=== PATIENT | female | born 1950 | race Hispanic/Latino ===

== ENCOUNTER 2022-03-01 16:38 | Inpatient (IN) | payer MEDICARE ==
[2022-03-02] MEDS: MELATONIN 5 MG TAB PO PRN ×2 (01:37→21:07)
[2022-03-02] MEDS: levETIRAcetam 500 MG TAB PO SCH ×3 (01:37→21:07)
[2022-03-02 08:17] LABS: Basophils % (Auto) 0.3 % (0.0-1.8); Eosinophils # (Auto) 0.3 K/mm3 (0.0-0.4); Eosinophils % (Auto) 3.5 % (0.0-4.3); Hematocrit 38.2 % (30.3-42.9); Hemoglobin 12.6 gm/dl (10.1-14.3); Lymphocytes # (Auto) 1.6 K/mm3 (1.2-5.4); Lymphocytes % (Auto) 20.5 % (13.4-35.0); Mean Corpuscular HGB Conc 33 % (30-34); Mean Corpuscular Volume 86 fl (79-97); Monocytes # (Auto) 0.8 K/mm3 (0.0-0.8); Monocytes % (Auto) 10.4 % (0.0-7.3); Platelet Count 269 K/mm3 (140-440); Red Blood Count 4.45 M/mm3 (3.65-5.03); Red Cell Distribution Width 14.2 % (13.2-15.2)
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
[2022-03-02 08:46] LABS: Alanine Aminotransferase 9 units/L (7-56); Albumin 4.4 g/dL (3.9-5); Blood Urea Nitrogen 7 mg/dL (7-17); Calcium 9.7 mg/dL (8.4-10.2); Chol/HDL Ratio 2.61 %; HDL Cholesterol 67 mg/dL (40-59); Hemolysis Index 2; LDL Cholesterol,Direct 87 mg/dL (50-130)
[2022-03-02 08:52] LABS: BUN/Creatinine Ratio 10
[2022-03-02] MEDS ORDERED: FERROUS SULFATE 325 MG PO SCH (10:00)
[2022-03-02] MEDS: FERROUS SULFATE 325 MG TAB PO SCH ×2 (10:00→21:06)
[2022-03-02] MEDS ORDERED: LEVOTHYROXINE 25 MCG PO SCH (10:00)
[2022-03-02] MEDS ORDERED: FOLIC ACID 1 MG PO SCH (10:00)
[2022-03-02] MEDS: atenoloL 50 MG TAB PO SCH ×2 (10:00→21:07)
[2022-03-02] MEDS: CITALOPRAM 20 MG TAB PO SCH (10:00)
[2022-03-02] MEDS ORDERED: CRESTOR 5 MG PO SCH (10:00)
[2022-03-02] MEDS ORDERED: ZIPRASIDONE MESYLATE 20 MG VIAL IM PRN (10:00)
[2022-03-02] MEDS ORDERED: CELEXA 40 MG PO SCH (10:00)
[2022-03-02] MEDS ORDERED: ONDANSETRON 4 MG PO SCH (10:00)
[2022-03-02] MEDS: hydroCHLOROthiazide 25 MG TAB PO SCH (10:00)
[2022-03-02] MEDS ORDERED: LEVOTHYROXINE 50 MCG PO SCH (10:00)
[2022-03-02] MEDS: FOLIC ACID 1 MG TAB PO SCH ×2 (10:00→21:07)
[2022-03-02] MEDS ORDERED: levETIRAcetam 500 MG TAB PO SCH (10:00)
[2022-03-02] MEDS ORDERED: ATENOLOL 50 MG PO SCH (10:00)
[2022-03-02] MEDS ORDERED: PROPRANOLOL 20 MG PO SCH (10:00)
[2022-03-02] MEDS: ONDANSETRON 4 MG ODT TAB PO SCH ×2 (12:00→21:07)
--- NOTE | 2022-03-02 14:30 | Consultation ---
History of Present Illness - Reason for Consult Consult date: 03/02/22 medical management Requesting physician: KE WOOD - History of Present Illness 71-year-old female with past medical history of seizures, hypertension, hyperlpidemia, celiac disease, hypothyroidism, depression and anxiety presenting to our facility for acute psychosis to the [facility] psych service. Internal medicine service consulted for medical management. She denies any acute symptomology of PACHECO, dizziness, n/v/d/c, chest pain, shortness of breath, PMHx: seizures, hypertension, hyperlpidemia, celiac disease, hypothyroidism, ?chronic lyme disease, depression and anxiety PSHx: discectomy in 1980, hysterectomy in . FHx: reviewed noncontributory SHx: Tobacco use-denies ETOH Use-occasionally Recreational Drug Use-denies PCP-Dr. Santiago From [place], [place] Medications and Allergies Allergies Allergy/AdvReac Type Severity Reaction Status Date / Time aspirin Allergy Unknown Unverified 03/01/22 16:48 ceftriaxone Allergy Unknown Unverified 03/01/22 16:45 ginkgo biloba Allergy Unknown Unverified 03/01/22 16:48 oxycodone Allergy Unknown Unverified 03/01/22 16:45 Home Medications Medication Instructions Recorded Confirmed Last Taken Type Atenolol 50 mg PO BID 03/01/22 03/01/22 02/26/22 History Celexa 40 mg PO DAILY 03/01/22 03/01/22 02/26/22 History Crestor 5 mg PO DAILY 03/01/22 03/01/22 02/26/22 History Ferrous Sulfate 325 mg PO BID 03/01/22 03/01/22 02/26/22 History Folic Acid 1 mg PO BID 03/01/22 03/01/22 02/26/22 History Levothyroxine 25 mcg PO DAILY 03/01/22 03/01/22 02/26/22 History Levothyroxine 50 mcg PO DAILY 03/01/22 03/01/22 02/26/22 History Melatonin 5 mg SUBLINGUAL HS 03/01/22 03/01/22 02/26/22 History Ondansetron 4 mg PO BID 03/01/22 03/01/22 02/26/22 History hydroCHLOROthiazide [HCTZ] 25 mg PO DAILY 03/01/22 03/01/2222 History levETIRAcetam [Keppra TAB] 500 mg PO BID 03/01/22 03/01/22 02/26/22 History propranoloL 20 mg PO BID 03/01/22 03/01/22 Unknown History Active Meds: Active Medications Atenolol (Atenolol 50 Mg Tab) 50 mg PO BID [facility] Last Admin: 03/02/22 10:00 Dose: 50 mg Atorvastatin Calcium (Atorvastatin 20 Mg Tab) 20 mg PO QHS [facility] Citalopram Hydrobromide (Citalopram 20 Mg Tab) 40 mg PO QDAY [facility] Last Admin: 03/02/22 10:00 Dose: 40 mg Ferrous Sulfate (Ferrous Sulfate 325 Mg Tab) 325 mg PO BID [facility] Last Admin: 03/02/22 10:00 Dose: 325 mg Folic Acid (Folic Acid 1 Mg Tab) 1 mg PO BID [facility] Last Admin: 03/02/22 10:00 Dose: 1 mg Hydrochlorothiazide (Hydrochlorothiazide 25 Mg Tab) 25 mg PO DAILY [facility] Last Admin: 03/02/22 10:00 Dose: 25 mg Levetiracetam (Levetiracetam 500 Mg Tab) 500 mg PO BID [facility] Last Admin: 03/02/22 10:00 Dose: 500 mg Levothyroxine Sodium (Levothyroxine 25 Mcg Tab) 25 mcg PO DAILY@0600 [facility] Levothyroxine Sodium (Levothyroxine 50 Mcg Tab) 50 mcg PO DAILY@0600 [facility] Melatonin (Melatonin 5 Mg Tab) 5 mg PO QHS PRN PRN Reason: Sleep Last Admin: 03/02/22 01:37 Dose: 5 mg Ondansetron HCl (Ondansetron 4 Mg Odt Tab) 4 mg PO BID [facility] Last Admin: 03/02/22 12:00 Dose: 4 mg Trazodone HCl (Trazodone 50 Mg Tab) 50 mg PO QHS [facility] Ziprasidone (Ziprasidone Mesylate 20 Mg Vial) 20 mg IM Q4H PRN PRN Reason: Agitation Review of Systems All systems: negative (for stated in HPI.) Exam - Physical Exam Narrative exam: Physical Exam: VITAL SIGNS: Reviewed. GENERAL: The patient appears normally developed, Vital signs as documente d.Elderly female appears stated age. HEAD: No signs of head trauma. EYES: Pupils are equal. Extraocular motions intact. EARS: Hearing grossly intact. MOUTH: Oropharynx is normal. NECK: No adenopathy, no JVD. CHEST: Chest with clear breath sounds bilaterally. No wheezes, rales, or rhonchi. CARDIAC: Regular rate and rhythm. S1 and S2, without murmurs, gallops, or rubs. VASCULAR: No Edema. Peripheral pulses normal and equal in all extremities. ABDOMEN: Soft, non tender and non distended. No rebound or guarding, and no masses palpated. Bowel Sounds normal. MUSCULOSKELETAL: Extremities without clubbing, cyanosis or edema. NEUROLOGIC EXAM: Alert and oriented x 4. no focal sensory or strength deficits. PSYCHIATRIC: Mood normal. SKIN: detail exam as documented in skin assessment - Constitutional Vitals: Temp Pulse Resp BP Pulse Ox 98.7 F 112 H 17 137/87 96 03/01/22 23:30 03/01/22 23:30 03/01/22 23:30 03/01/22 23:30 03/01/22 23:30 Results - Labs CBC & Chem 7: 03/02/22 07:39 03/02/22 07:39 Labs: Abnormal lab results 03/02/22 03/02/22 03/02/22 Range/Units 07:39 07:39 07:39 [place] % (Auto) 10.4 H (0.0-7.3) % Glucose 105 H (65-100) mg/dL Hemoglobin A1c 6.2 H (4-6) % HDL Cholesterol 67 H (40-59) mg/dL Assessment and Plan #Acute psychosis #Anxiety #Depression #History of seizures #History of Celiac Disease #Essential Hypertension #Hyperlipidemia #Hypothyroidism #Preventative health care - preventative health counseling regarding management of life stressors, medication compliance and overall effect of chronic medical conditions on overall health. Encourage patient to follow up closely with with OP providers +30 minutes. Plan -Psychiatric medication management per inpatient psych service -Monitor blood pressure daily -Accu-Cheks ACHS -labs orders noted, will follow for results -Resume home: atenolol, atorvastatin, HCTZ, keppra, levothyroxine -Monitor QTC while on antipsychotic meds IM service will follow along while patient remains in hospital.
[2022-03-02] MEDS: traZODone 50 MG TAB PO SCH (21:07)
[2022-03-02] MEDS ORDERED: MELATONIN 5 MG SUBLINGUAL SCH (22:00)
[2022-03-03] MEDS: LEVOTHYROXINE 50 MCG TAB PO SCH (05:14)
[2022-03-03] MEDS: LEVOTHYROXINE 25 MCG TAB PO SCH (05:14)
--- NOTE | 2022-03-03 09:11 | Progress Note ---
Assessment and Plan Assessment and plan: #Acute psychosis #Anxiety #Depression #History of seizures #History of Celiac Disease #Essential Hypertension #Hyperlipidemia #Hypothyroidism #Advance care planning Disease education conducted, care plan discussed, diagnoses discussed, prognosis discussed, patient is full code, patient acknowledges understanding and agree with care plan, +30 minutes. #Preventative health care - preventative health counseling regarding management of life stressors, medication compliance and overall effect of chronic medical conditions on overall health. Encourage patient to follow up closely with with OP providers +15 minutes. Plan -Psychiatric medication management per inpatient psych service -Monitor blood pressure daily -Accu-Cheks ACHS -labs orders noted, results noted. - A1c: 6.1, no indication to treat at this time given age. Advise carbohydrate controlled diet. -Resume home: atenolol, atorvastatin, HCTZ, keppra, levothyroxine -Monitor QTC while on antipsychotic meds IM service will follow along while patient remains in hospital. History Interval history: Flight of ideas noted on encounter. Patient continues to be concerned about recieving all meds and re-iterates frequently all of chronic conditions particularly her history of seizures and chronic lyme disease. Otherwise no acute complaints. Hospitalist Physical - Physical exam Narrative exam: Physical Exam: VITAL SIGNS: Reviewed. GENERAL: The patient appears normally developed, Vital signs as documented.Elderly female appears stated age. HEAD: No signs of head trauma. EYES: Pupils are equal. Extraocular motions intact. EARS: Hearing grossly intact. MOUTH: Oropharynx is normal. NECK: No adenopathy, no JVD. CHEST: Chest with clear breath sounds bilaterally. No wheezes, rales, or rhonchi. CARDIAC: Regular rate and rhythm. S1 and S2, without murmurs, gallops, or rubs. VASCULAR: No Edema. Peripheral pulses normal and equal in all extremities. ABDOMEN: Soft, non tender and non distended. No rebound or guarding, and no masses palpated. Bowel Sounds normal. MUSCULOSKELETAL: Extremities without clubbing, cyanosis or edema. NEUROLOGIC EXAM: Alert and oriented x 4. no focal sensory or strength deficits. PSYCHIATRIC: Mood normal. SKIN: detail exam as documented in skin assessment - Constitutional Vitals: Temp Pulse Resp BP Pulse Ox 98.6 F 112 H 17 137/87 96 03/02/22 20:23 03/02/22 21:07 03/02/22 20:23 03/02/22 21:07 03/02/22 20:23 Results - Labs CBC & Chem 7: 03/02/22 07:39 03/02/22 07:39 Labs: Laboratory Last Values WBC 7.9 K/mm3 (4.5-11.0) 03/02/22 07:39 RBC 4.45 M/mm3 (3.65-5.03) 03/02/22 07:39 Hgb 12.6 gm/dl (10.1-14.3) 03/02/22 07:39 Hct 38.2 % (30.3-42.9) 03/02/22 07:39 MCV 86 fl (79-97) 03/02/22 07:39 MCH 28 pg (28-32) 03/02/22 07:39 MCHC 33 % (30-34) 03/02/22 07:39 RDW 14.2 % (13.2-15.2) 03/02/22 07:39 Plt Count 269 K/mm3 (140-440) 03/02/22 07:39 Lymph % (Auto) 20.5 % (13.4-35.0) 03/02/22 07:39 [place] % (Auto) 10.4 % (0.0-7.3) H 03/02/22 07:39 Eos % (Auto) 3.5 % (0.0-4.3) 03/02/22 07:39 Baso % (Auto) 0.3 % (0.0-1.8) 03/02/22 07:39 Lymph # (Auto) 1.6 K/mm3 (1.2-5.4) 03/02/22 07:39 [place] # (Auto) 0.8 K/mm3 (0.0-0.8) 03/02/22 07:39 Eos # (Auto) 0.3 K/mm3 (0.0-0.4) 03/02/22 07:39 Baso # (Auto) 0.0 K/mm3 (0.0-0.1) 03/02/22 07:39 Seg Neutrophils % 65.3 % (40.0-70.0) 03/02/22 07:39 Seg Neutrophils # 5.1 K/mm3 (1.8-7.7) 03/02/22 07:39 Sodium 144 mmol/L (137-145) 03/02/22 07:39 Potassium 3.9 mmol/L (3.6-5.0) 03/02/22 07:39 Chloride 104.1 mmol/L (98-107) 03/02/22 07:39 Carbon Dioxide 26 mmol/L (22-30) 03/02/22 07:39 Anion Gap 18 mmol/L 03/02/22 07:39 BUN 7 mg/dL (7-17) 03/02/22 07:39 Creatinine 0.7 mg/dL (0.6-1.2) 03/02/22 07:39 Estimated GFR > 60 ml/min 03/02/22 07:39 BUN/Creatinine Ratio 10 % 03/02/22 07:39 Glucose 105 mg/dL (65-100) H 03/02/22 07:39 Hemoglobin A1c 6.2 % (4-6) H 03/02/22 07:39 Calcium 9.7 mg/dL (8.4-10.2) 03/02/22 07:39 Total Bilirubin 0.40 mg/dL (0.1-1.2) 03/02/22 07:39 AST 15 units/L (5-40) 03/02/22 07:39 ALT 9 units/L (7-56) 03/02/22 07:39 Alkaline Phosphatase 76 units/L (35-129) 03/02/22 07:39 Total Protein 6.8 g/dL (6.3-8.2) 03/02/22 07:39 Albumin 4.4 g/dL (3.9-5) 03/02/22 07:39 Albumin/Globulin Ratio 1.8 % 03/02/22 07:39 Triglycerides 104 mg/dL (2-149) 03/02/22 07:39 Cholesterol 175 mg/dL (50-199) 03/02/22 07:39 LDL Cholesterol Direct 87 mg/dL (50-130) 03/02/22 07:39 HDL Cholesterol 67 mg/dL (40-59) H 03/02/22 07:39 Cholesterol/HDL Ratio 2.61 % 03/02/22 07:39 TSH 2.380 mlU/mL (0.270-4.200) 03/02/22 07:39 Mendoza/IV: Voiding Method Toilet Active Medications - Current Medications Current Medications: Generic Name Dose Route Start Last Admin Trade Name Nikunjq PRN Reason Stop Dose Admin Atenolol 50 mg 03/02/22 10:00 03/02/22 21:07 Atenolol 50 Mg Tab PO 50 mg BID AYAD Administration Atorvastatin Calcium 20 mg 03/02/22 22:00 03/02/22 21:06 Atorvastatin 20 Mg Tab PO 20 mg QHS AYAD Administration Citalopram Hydrobromide 40 mg 03/02/22 10:00 03/02/22 10:00 Citalopram 20 Mg Tab PO 40 mg QDAY AYAD Administration Ferrous Sulfate 325 mg 03/02/22 10:00 03/02/22 21:06 Ferrous Sulfate 325 Mg Tab PO 325 mg BID AYAD Administration Folic Acid 1 mg 03/02/22 10:00 03/02/22 21:07 Folic Acid 1 Mg Tab PO 1 mg BID AYAD Administration Hydrochlorothiazide 25 mg 03/02/22 10:00 03/02/22 10:00 Hydrochlorothiazide 25 Mg Tab PO 25 mg DAILY AYAD Administration Levetiracetam 500 mg 03/02/22 02:00 03/02/22 21:07 Levetiracetam 500 Mg Tab PO 500 mg BID AYAD Administration Levothyroxine Sodium 25 mcg 03/03/22 06:00 03/03/22 05:14 Levothyroxine 25 Mcg Tab PO 25 mcg DAILY@0600 AYAD Administration Levothyroxine Sodium 50 mcg 03/03/22 06:00 03/03/22 05:14 Levothyroxine 50 Mcg Tab PO 50 mcg DAILY@0600 AYAD Administration Melatonin 5 mg 03/02/22 01:25 03/02/22 21:07 Melatonin 5 Mg Tab PO 5 mg QHS PRN Administration Sleep Ondansetron HCl 4 mg 03/02/22 10:00 03/02/22 21:07 Ondansetron 4 Mg Odt Tab PO 4 mg BID AYAD Administration Trazodone HCl 50 mg 03/02/22 22:00 03/02/22 21:07 Trazodone 50 Mg Tab PO 50 mg QHS AYAD Administration Ziprasidone 20 mg 03/02/22 10:00 Ziprasidone Mesylate 20 Mg Vial IM Q4H PRN Agitation
[2022-03-03] MEDS: FERROUS SULFATE 325 MG TAB PO SCH ×2 (10:09→21:59)
[2022-03-03] MEDS: FOLIC ACID 1 MG TAB PO SCH ×2 (10:09→22:01)
[2022-03-03] MEDS: levETIRAcetam 500 MG TAB PO SCH ×2 (10:09→22:00)
[2022-03-03] MEDS: CITALOPRAM 20 MG TAB PO SCH (10:10)
[2022-03-03] MEDS: ONDANSETRON 4 MG ODT TAB PO SCH ×2 (10:18→22:04)
[2022-03-03] MEDS: atenoloL 50 MG TAB PO SCH ×2 (10:19→22:04)
[2022-03-03] MEDS: hydroCHLOROthiazide 25 MG TAB PO SCH (10:19)
[2022-03-03] MEDS: ACETAMINOPHEN 325 MG TAB PO PRN ×2 (10:54→22:54)
--- NOTE | 2022-03-03 13:30 | Progress Note ---
Subjective Date of service: 03/03/22 Subjective Comment: The patient was seen this morning. she continues to be somatically focuses, circumstantial and flight of ideas. She states her mood is good. she denies any current suicidal/homicidal ideation and denies hallucinations. REVIEW OF SYSTEMS Constitutional: Negative for weight loss ENT: Negative for stridor Respiratory: Negative for cough or hemoptysis All other systems reviewed and are negative MENTAL STATUS EXAMINATION General Appearance and Behavior: Age appropriate, good hygiene, wearing appropriate clothes, fair eye contact, calm, cooperative and polite Cooperation: Cooperative Psychomotor Behavior: Psychomotor normal Mood: Depressed Affect and affective range: congruent with stated mood Thought Process: flight of ideas/ circumstantial Thought Content: Somatic Speech: normal tone and pace Suicidal Ideation: Denies Homicidal Ideation: Denies Hallucinations: Denies Delusions: None elicited Impulse Control: Limited Insight and Judgment: Limited insight and judgment Memory: Limited Attention: attentive Orientation: Alert, oriented Assessment and Plan Major depressive disorder with psychotic features Treatment Plan Patient admitted for inpatient psychiatric evaluation, medication adjustment and close monitoring The patient's behavior, mood, sleep and appetite will be closely monitored. Patient enrolled in individual and group therapeutic sessions and encouraged to attend. Patient provided with a safe and structured environment. Patient's physical health needs will be addressed by the Hospitalist. Hospitalist Consulted Labs including CBC, CMP, Lipid profile and Hemoglobin A1C levels ordered for baseline reference Social Assessment will be completed and the [employer] will work with patient and family to ensure a suitable and safe disposition Medication adjustment will be made as clinically indicated Continue home meds Usual Wellness [place]/Preservation: - Start Trazodone 50 mg po QHS & 50 mg po QHS PRN between 10 PM & 2 AM for insomnia - Start Melatonin 5 mg po QHS to promote circadian rhythm The patient agreed on the treatment plan, understood the risk, benefit, alternative treatment, potential consequence of no treatment, and gave informed consent. Estimated days: 6 Post hospital care: primary care provider, psychiatric provider Case staffed with Dr. Walsh Legal Status: Voluntary Reaction to Hospitalization: Accepting Medications and Allergies Allergies Allergy/AdvReac Type Severity Reaction Status Date / Time aspirin Allergy Unknown Unverified 03/01/22 16:48 ceftriaxone Allergy Unknown Unverified 03/01/22 16:45 ginkgo biloba Allergy Unknown Unverified 03/01/22 16:48 oxycodone Allergy Unknown Unverified 03/01/22 16:45 Home Medications Medication Instructions Recorded Confirmed Last Taken Type Atenolol 50 mg PO BID 03/01/22 03/01/22 02/26/22 History Celexa 40 mg PO DAILY 03/01/22 03/01/22 02/26/22 History Crestor 5 mg PO DAILY 03/01/22 03/01/22 02/26/22 History Ferrous Sulfate 325 mg PO BID 03/01/22 03/01/22 02/26/22 History Folic Acid 1 mg PO BID 03/01/22 03/01/22 02/26/22 History Levothyroxine 25 mcg PO DAILY 03/01/22 03/01/22 02/26/22 History Levothyroxine 50 mcg PO DAILY 03/01/22 03/01/22 02/26/22 History Melatonin 5 mg SUBLINGUAL HS 03/01/22 03/01/22 02/26/22 History Ondansetron 4 mg PO BID 03/01/22 03/01/22 02/26/22 History hydroCHLOROthiazide [HCTZ] 25 mg PO DAILY 03/01/22 03/01/22 02/26/22 History levETIRAcetam [Keppra TAB] 500 mg PO BID 03/01/22 03/01/22 02/26/22 History propranoloL 20 mg PO BID 03/01/22 03/01/22 Unknown History Active Meds: Active Medications Acetaminophen (Acetaminophen 325 Mg Tab) 650 mg PO Q6H PRN PRN Reason: Pain, Mild (1-3) Last Admin: 03/03/22 10:54 Dose: 650 mg Atenolol (Atenolol 50 Mg Tab) 50 mg PO BID [facility] Last Admin: 03/03/22 10:19 Dose: Not Given Atorvastatin Calcium (Atorvastatin 20 Mg Tab) 20 mg PO QHS [facility] Last Admin: 03/02/22 21:06 Dose: 20 mg Citalopram Hydrobromide (Citalopram 20 Mg Tab) 40 mg PO QDAY [facility] Last Admin: 03/03/22 10:10 Dose: 40 mg Ferrous Sulfate (Ferrous Sulfate 325 Mg Tab) 325 mg PO BID [facility] Last Admin: 03/03/22 10:09 Dose: 325 mg Folic Acid (Folic Acid 1 Mg Tab) 1 mg PO BID [facility] Last Admin: 03/03/22 10:09 Dose: 1 mg Hydrochlorothiazide (Hydrochlorothiazide 25 Mg Tab) 25 mg PO DAILY [facility] Last Admin: 03/03/22 10:19 Dose: Not Given Levetiracetam (Levetiracetam 500 Mg Tab) 500 mg PO BID [facility] Last Admin: 03/03/22 10:09 Dose: 500 mg Levothyroxine Sodium (Levothyroxine 25 Mcg Tab) 25 mcg PO DAILY@0600 [facility] Last Admin: 03/03/22 05:14 Dose: 25 mcg Levothyroxine Sodium (Levothyroxine 50 Mcg Tab) 50 mcg PO DAILY@0600 [facility] Last Admin: 03/03/22 05:14 Dose: 50 mcg Melatonin (Melatonin 5 Mg Tab) 5 mg PO QHS PRN PRN Reason: Sleep Last Admin: 03/02/22 21:07 Dose: 5 mg Ondansetron HCl (Ondansetron 4 Mg Odt Tab) 4 mg PO BID [facility] Last Admin: 03/03/22 10:18 Dose: Not Given Trazodone HCl (Trazodone 50 Mg Tab) 50 mg PO QHS [facility] Last Admin: 03/02/22 21:07 Dose: 50 mg Ziprasidone (Ziprasidone Mesylate 20 Mg Vial) 20 mg IM Q4H PRN PRN Reason: Agitation Results - Results Labs/Vitals: Laboratory Last Values WBC 7.9 K/mm3 (4.5-11.0) 03/02/22 07:39 RBC 4.45 M/mm3 (3.65-5.03) 03/02/22 07:39 Hgb 12.6 gm/dl (10.1-14.3) 03/02/22 07:39 Hct 38.2 % (30.3-42.9) 03/02/22 07:39 MCV 86 fl (79-97) 03/02/22 07:39 MCH 28 pg (28-32) 03/02/22 07:39 MCHC 33 % (30-34) 03/02/22 07:39 RDW 14.2 % (13.2-15.2) 03/02/22 07:39 Plt Count 269 K/mm3 (140-440) 03/02/22 07:39 Lymph % (Auto) 20.5 % (13.4-35.0) 03/02/22 07:39 [place] % (Auto) 10.4 % (0.0-7.3) H 03/02/22 07:39 Eos % (Auto) 3.5 % (0.0-4.3) 03/02/22 07:39 Baso % (Auto) 0.3 % (0.0-1.8) 03/02/22 07:39 Lymph # (Auto) 1.6 K/mm3 (1.2-5.4) 03/02/22 07:39 [place] # (Auto) 0.8 K/mm3 (0.0-0.8) 03/02/22 07:39 Eos # (Auto) 0.3 K/mm3 (0.0-0.4) 03/02/22 07:39 Baso # (Auto) 0.0 K/mm3 (0.0-0.1) 03/02/22 07:39 Seg Neutrophils % 65.3 % (40.0-70.0) 03/02/22 07:39 Seg Neutrophils # 5.1 K/mm3 (1.8-7.7) 03/02/22 07:39 Sodium 144 mmol/L (137-145) 03/02/22 07:39 Potassium 3.9 mmol/L (3.6-5.0) 03/02/22 07:39 Chloride 104.1 mmol/L (98-107) 03/02/22 07:39 Carbon Dioxide 26 mmol/L (22-30) 03/02/22 07:39 Anion Gap 18 mmol/L 03/02/22 07:39 BUN 7 mg/dL (7-17) 03/02/22 07:39 Creatinine 0.7 mg/dL (0.6-1.2) 03/02/22 07:39 Estimated GFR > 60 ml/min 03/02/22 07:39 BUN/Creatinine Ratio 10 % 03/02/22 07:39 Glucose 105 mg/dL (65-100) H 03/02/22 07:39 Hemoglobin A1c 6.2 % (4-6) H 03/02/22 07:39 Calcium 9.7 mg/dL (8.4-10.2) 03/02/22 07:39 Total Bilirubin 0.40 mg/dL (0.1-1.2) 03/02/22 07:39 AST 15 units/L (5-40) 03/02/22 07:39 ALT 9 units/L (7-56) 03/02/22 07:39 Alkaline Phosphatase 76 units/L (35-129) 03/02/22 07:39 Total Protein 6.8 g/dL (6.3-8.2) 03/02/22 07:39 Albumin 4.4 g/dL (3.9-5) 03/02/22 07:39 Albumin/Globulin Ratio 1.8 % 03/02/22 07:39 Triglycerides 104 mg/dL (2-149) 03/02/22 07:39 Cholesterol 175 mg/dL (50-199) 03/02/22 07:39 LDL Cholesterol Direct 87 mg/dL (50-130) 03/02/22 07:39 HDL Cholesterol 67 mg/dL (40-59) H 03/02/22 07:39 Cholesterol/HDL Ratio 2.61 % 03/02/22 07:39 TSH 2.380 mlU/mL (0.270-4.200) 03/02/22 07:39 Last Vital Signs Temp 98.0 F 03/03/22 08:08 Pulse 56 L 03/03/22 08:08 Resp 16 03/03/22 08:08 BP 128/56 03/03/22 08:08 Pulse Ox 98 03/03/22 08:08
[2022-03-03] MEDS: traZODone 50 MG TAB PO SCH (21:59)
[2022-03-04] MEDS: LEVOTHYROXINE 25 MCG TAB PO SCH (05:41)
[2022-03-04] MEDS: LEVOTHYROXINE 50 MCG TAB PO SCH (05:42)
[2022-03-04] MEDS: FOLIC ACID 1 MG TAB PO SCH ×2 (09:30→21:45)
[2022-03-04] MEDS: FERROUS SULFATE 325 MG TAB PO SCH ×2 (09:30→21:44)
[2022-03-04] MEDS: CITALOPRAM 20 MG TAB PO SCH (09:31)
[2022-03-04] MEDS: hydroCHLOROthiazide 25 MG TAB PO SCH (09:31)
[2022-03-04] MEDS: levETIRAcetam 500 MG TAB PO SCH ×2 (09:31→21:45)
[2022-03-04] MEDS: ACETAMINOPHEN 325 MG TAB PO PRN ×2 (09:31→21:59)
[2022-03-04] MEDS: ONDANSETRON 4 MG ODT TAB PO SCH ×2 (09:31→21:46)
--- NOTE | 2022-03-04 09:44 | Progress Note ---
Subjective Date of service: 03/04/22 Subjective Comment: 03/04:The patient was seen this morning. she continues to be somatically focuses, and tangential. She states her mood is good. She denies any current suicidal/homicidal ideation and denies hallucinations. Start Abilify 5mg po Daily. 03/03:The patient was seen this morning. she continues to be somatically focuses, circumstantial and flight of ideas. She states her mood is good. she denies any current suicidal/homicidal ideation and denies hallucinations. REVIEW OF SYSTEMS Constitutional: Negative for weight loss ENT: Negative for stridor Respiratory: Negative for cough or hemoptysis All other systems reviewed and are negative MENTAL STATUS EXAMINATION General Appearance and Behavior: Age appropriate, good hygiene, wearing appropriate clothes, fair eye contact, calm, cooperative and polite Cooperation: Cooperative Psychomotor Behavior: Psychomotor normal Mood: Depressed Affect and affective range: congruent with stated mood Thought Process: flight of ideas/ Tangential Thought Content: Somatic Speech: normal tone and pace Suicidal Ideation: Denies Homicidal Ideation: Denies Hallucinations: Denies Delusions: None elicited Impulse Control: Limited Insight and Judgment: Limited insight and judgment Memory: Limited Attention: attentive Orientation: Alert, oriented Assessment and Plan Major depressive disorder with psychotic features Treatment Plan Patient admitted for inpatient psychiatric evaluation, medication adjustment and close monitoring The patient's behavior, mood, sleep and appetite will be closely monitored. Patient enrolled in individual and group therapeutic sessions and encouraged to attend. Patient provided with a safe and structured environment. Patient's physical health needs will be addressed by the Hospitalist. Hospitalist Consulted Labs including CBC, CMP, Lipid profile and Hemoglobin A1C levels ordered for baseline reference Social Assessment will be completed and the Supervisor [employer] will work with patient and family to ensure a suitable and safe disposition Medication adjustment will be made as clinically indicated Continue home meds Usual Wellness S[place]/Preservation: - Start Trazodone 50 mg po QHS & 50 mg po QHS PRN between 10 PM & 2 AM for insomnia - Start Melatonin 5 mg po QHS to promote circadian rhythm The patient agreed on the treatment plan, understood the risk, benefit, alternative treatment, potential consequence of no treatment, and gave informed consent. Estimated days: 6 Post hospital care: primary care provider, psychiatric provider Case staffed with Dr. Walsh Legal Status: Voluntary Reaction to Hospitalization: Accepting Medications and Allergies Medications and Allergies Allergies Allergy/AdvReac Type Severity Reaction Status Date / Time aspirin Allergy Unknown Unverified 03/01/22 16:48 ceftriaxone Allergy Unknown Unverified 03/01/22 16:45 ginkgo biloba Allergy Unknown Unverified 03/01/22 16:48 oxycodone Allergy Unknown Unverified 03/01/22 16:45 Home Medications Medication Instructions Recorded Confirmed Last Taken Type Atenolol 50 mg PO BID 03/01/22 03/01/22 02/26/22 History Celexa 40 mg PO DAILY 03/01/22 03/01/22 02/26/22 History Crestor 5 mg PO DAILY 03/01/22 03/01/22 02/26/22 History Ferrous Sulfate 325 mg PO BID 03/01/22 03/01/22 02/26/22 History Folic Acid 1 mg PO BID 03/01/22 03/01/22 02/26/22 History Levothyroxine 25 mcg PO DAILY 03/01/22 03/01/22 02/26/22 History Levothyroxine 50 mcg PO DAILY 03/01/22 03/01/22 02/26/22 History Melatonin 5 mg SUBLINGUAL HS 03/01/22 03/01/22 02/26/22 History Ondansetron 4 mg PO BID 03/01/22 03/01/22 02/26/22 History hydroCHLOROthiazide [HCTZ] 25 mg PO DAILY 03/01/22 03/01/22 02/26/22 History levETIRAcetam [Keppra TAB] 500 mg PO BID 03/01/22 03/01/22 02/26/22 History propranoloL 20 mg PO BID 03/01/22 03/01/22 Unknown History Active Meds: Active Medications Acetaminophen (Acetaminophen 325 Mg Tab) 650 mg PO Q6H PRN PRN Reason: Pain, Mild (1-3) Last Admin: 03/04/22 09:31 Dose: 650 mg Atenolol (Atenolol 50 Mg Tab) 50 mg PO BID [facility] Last Admin: 03/03/22 22:04 Dose: Not Given Atorvastatin Calcium (Atorvastatin 20 Mg Tab) 20 mg PO QHS [facility] Last Admin: 03/03/22 22:00 Dose: 20 mg Citalopram Hydrobromide (Citalopram 20 Mg Tab) 40 mg PO QDAY [facility] Last Admin: 03/04/22 09:31 Dose: 40 mg Ferrous Sulfate (Ferrous Sulfate 325 Mg Tab) 325 mg PO BID [facility] Last Admin: 03/04/22 09:30 Dose: 325 mg Folic Acid (Folic Acid 1 Mg Tab) 1 mg PO BID [facility] Last Admin: 03/04/22 09:30 Dose: 1 mg Hydrochlorothiazide (Hydrochlorothiazide 25 Mg Tab) 25 mg PO DAILY [facility] Last Admin: 03/04/22 09:31 Dose: Not Given Levetiracetam (Levetiracetam 500 Mg Tab) 500 mg PO BID [facility] Last Admin: 03/04/22 09:31 Dose: 500 mg Levothyroxine Sodium (Levothyroxine 25 Mcg Tab) 25 mcg PO DAILY@0600 [facility] Last Admin: 03/04/22 05:41 Dose: 25 mcg Levothyroxine Sodium (Levothyroxine 50 Mcg Tab) 50 mcg PO DAILY@0600 [facility] Last Admin: 03/04/22 05:42 Dose: 50 mcg Melatonin (Melatonin 5 Mg Tab) 5 mg PO QHS PRN PRN Reason: Sleep Last Admin: 03/02/22 21:07 Dose: 5 mg Ondansetron HCl (Ondansetron 4 Mg Odt Tab) 4 mg PO BID [facility] Last Admin: 03/04/22 09:31 Dose: Not Given Trazodone HCl (Trazodone 50 Mg Tab) 50 mg PO QHS [facility] Last Admin: 03/03/22 21:59 Dose: 50 mg Ziprasidone (Ziprasidone Mesylate 20 Mg Vial) 20 mg IM Q4H PRN PRN Reason: Agitation Results - Results Labs/Vitals: Laboratory Last Values WBC 7.9 K/mm3 (4.5-11.0) 03/02/22 07:39 RBC 4.45 M/mm3 (3.65-5.03) 03/02/22 07:39 Hgb 12.6 gm/dl (10.1-14.3) 03/02/22 07:39 Hct 38.2 % (30.3-42.9) 03/02/22 07:39 MCV 86 fl (79-97) 03/02/22 07:39 MCH 28 pg (28-32) 03/02/22 07:39 MCHC 33 % (30-34) 03/02/22 07:39 RDW 14.2 % (13.2-15.2) 03/02/22 07:39 Plt Count 269 K/mm3 (140-440) 03/02/22 07:39 Lymph % (Auto) 20.5 % (13.4-35.0) 03/02/22 07:39 [place] % (Auto) 10.4 % (0.0-7.3) H 03/02/22 07:39 Eos % (Auto) 3.5 % (0.0-4.3) 03/02/22 07:39 Baso % (Auto) 0.3 % (0.0-1.8) 03/02/22 07:39 Lymph # (Auto) 1.6 K/mm3 (1.2-5.4) 03/02/22 07:39 [place] # (Auto) 0.8 K/mm3 (0.0-0.8) 03/02/22 07:39 Eos # (Auto) 0.3 K/mm3 (0.0-0.4) 03/02/22 07:39 Baso # (Auto) 0.0 K/mm3 (0.0-0.1) 03/02/22 07:39 Seg Neutrophils % 65.3 % (40.0-70.0) 03/02/22 07:39 Seg Neutrophils # 5.1 K/mm3 (1.8-7.7) 03/02/22 07:39 Sodium 144 mmol/L (137-145) 03/02/22 07:39 Potassium 3.9 mmol/L (3.6-5.0) 03/02/22 07:39 Chloride 104.1 mmol/L (98-107) 03/02/22 07:39 Carbon Dioxide 26 mmol/L (22-30) 03/02/22 07:39 Anion Gap 18 mmol/L 03/02/22 07:39 BUN 7 mg/dL (7-17) 03/02/22 07:39 Creatinine 0.7 mg/dL (0.6-1.2) 03/02/22 07:39 Estimated GFR > 60 ml/min 03/02/22 07:39 BUN/Creatinine Ratio 10 % 03/02/22 07:39 Glucose 105 mg/dL (65-100) H 03/02/22 07:39 Hemoglobin A1c 6.2 % (4-6) H 03/02/22 07:39 Calcium 9.7 mg/dL (8.4-10.2) 03/02/22 07:39 Total Bilirubin 0.40 mg/dL (0.1-1.2) 03/02/22 07:39 AST 15 units/L (5-40) 03/02/22 07:39 ALT 9 units/L (7-56) 03/02/22 07:39 Alkaline Phosphatase 76 units/L (35-129) 03/02/22 07:39 Total Protein 6.8 g/dL (6.3-8.2) 03/02/22 07:39 Albumin 4.4 g/dL (3.9-5) 03/02/22 07:39 Albumin/Globulin Ratio 1.8 % 03/02/22 07:39 Triglycerides 104 mg/dL (2-149) 03/02/22 07:39 Cholesterol 175 mg/dL (50-199) 03/02/22 07:39 LDL Cholesterol Direct 87 mg/dL (50-130) 03/02/22 07:39 HDL Cholesterol 67 mg/dL (40-59) H 03/02/22 07:39 Cholesterol/HDL Ratio 2.61 % 03/02/22 07:39 TSH 2.380 mlU/mL (0.270-4.200) 03/02/22 07:39 Last Vital Signs Temp 98.7 F 03/03/22 19:52 Pulse 58 L 03/03/22 22:04 Resp 18 03/03/22 22:54 BP 142/48 03/03/22 22:04 Pulse Ox 98 03/03/22 19:52
[2022-03-04] MEDS: ARIPiprazole 5 MG TAB PO SCH ×2 (10:41→12:07)
[2022-03-04] MEDS: atenoloL 50 MG TAB PO SCH ×3 (10:41→21:54)
--- NOTE | 2022-03-04 17:01 | Progress Note ---
Assessment and Plan Assessment and plan: Flight of ideas noted on encounter. Patient continues to be concerned about recieving all meds and re-iterates frequently all of chronic conditions particularly her history of seizures and chronic lyme disease. Otherwise no acute complaints. #Acute psychosis #Anxiety #Depression #History of seizures #History of Celiac Disease #Essential Hypertension #Hyperlipidemia #Hypothyroidism #Advance care planning Disease education conducted, care plan discussed, diagnoses discussed, prognosis discussed, patient is full code, patient acknowledges understanding and agree with care plan, +30 minutes. #Preventative health care - preventative health counseling regarding management of life stressors, medication compliance and overall effect of chronic medical conditions on overall health. Encourage patient to follow up closely with with OP providers +15 minutes. Plan -Psychiatric medication management per inpatient psych service -Monitor blood pressure daily -Add high-dose Borin to area of irritation caused by IV from an outside facility -Accu-Cheks ACHS -labs orders noted, results noted. - A1c: 6.1, no indication to treat at this time given age. Advise carbohydrate controlled diet. -Resume home: atenolol, atorvastatin, HCTZ, keppra, levothyroxine -Monitor QTC while on antipsychotic meds IM service will follow along while patient remains in hospital. History Interval history: Patient seen and examined reports [place] of issues most importantly poor appetite. States that he takes some medication [id number] which helps him eat he also reports that he had some eye problems in the past and supposed to be on the medication list L but has not gotten it for 3 weeks now. Hospitalist Physical - Physical exam Narrative exam: VITAL SIGNS: Reviewed. GENERAL: The patient appears normally developed, Vital signs as documented. HEAD: No signs of head trauma. EYES: Pupils are equal. Extraocular motions intact. EARS: Hearing grossly intact. MOUTH: Oropharynx is normal. NECK: No adenopathy, no JVD. CHEST: Chest with clear breath sounds bilaterally. No wheezes, rales, or rhonchi. CARDIAC: Regular rate and rhythm. S1 and S2, without murmurs, gallops, or rubs. VASCULAR: No Edema. Peripheral pulses normal and equal in all extremities. ABDOMEN: Soft, non tender and non distended. No rebound or guarding, and no masses palpated. Bowel Sounds normal. MUSCULOSKELETAL: Good range of motion of all major joints. Extremities without clubbing, cyanosis or edema. NEUROLOGIC EXAM: Alert and oriented x 3 No focal sensory or strength deficits. Speech normal. Follows commands. PSYCHIATRIC: Mood normal. SKIN: Spot on the right wrist area with erythema no warmth. Detail exam as documented in skin assessment - Constitutional Vitals: Temp Pulse Resp BP Pulse Ox 98.2 F 59 L 18 123/54 96 03/04/22 09:59 03/04/22 09:59 03/04/22 09:59 03/04/22 09:59 03/04/22 09:59 Results - Labs CBC & Chem 7: 03/02/22 07:39 03/02/22 07:39 Labs: Laboratory Last Values WBC 7.9 K/mm3 (4.5-11.0) 03/02/22 07:39 RBC 4.45 M/mm3 (3.65-5.03) 03/02/22 07:39 Hgb 12.6 gm/dl (10.1-14.3) 03/02/22 07:39 Hct 38.2 % (30.3-42.9) 03/02/22 07:39 MCV 86 fl (79-97) 03/02/22 07:39 MCH 28 pg (28-32) 03/02/22 07:39 MCHC 33 % (30-34) 03/02/22 07:39 RDW 14.2 % (13.2-15.2) 03/02/22 07:39 Plt Count 269 K/mm3 (140-440) 03/02/22 07:39 Lymph % (Auto) 20.5 % (13.4-35.0) 03/02/22 07:39 [place] % (Auto) 10.4 % (0.0-7.3) H 03/02/22 07:39 Eos % (Auto) 3.5 % (0.0-4.3) 03/02/22 07:39 Baso % (Auto) 0.3 % (0.0-1.8) 03/02/22 07:39 Lymph # (Auto) 1.6 K/mm3 (1.2-5.4) 03/02/22 07:39 [place] # (Auto) 0.8 K/mm3 (0.0-0.8) 03/02/22 07:39 Eos # (Auto) 0.3 K/mm3 (0.0-0.4) 03/02/22 07:39 Baso # (Auto) 0.0 K/mm3 (0.0-0.1) 03/02/22 07:39 Seg Neutrophils % 65.3 % (40.0-70.0) 03/02/22 07:39 Seg Neutrophils # 5.1 K/mm3 (1.8-7.7) 03/02/22 07:39 Sodium 144 mmol/L (137-145) 03/02/22 07:39 Potassium 3.9 mmol/L (3.6-5.0) 03/02/22 07:39 Chloride 104.1 mmol/L (98-107) 03/02/22 07:39 Carbon Dioxide 26 mmol/L (22-30) 03/02/22 07:39 Anion Gap 18 mmol/L 03/02/22 07:39 BUN 7 mg/dL (7-17) 03/02/22 07:39 Creatinine 0.7 mg/dL (0.6-1.2) 03/02/22 07:39 Estimated GFR > 60 ml/min 03/02/22 07:39 BUN/Creatinine Ratio 10 % 03/02/22 07:39 Glucose 105 mg/dL (65-100) H 03/02/22 07:39 Hemoglobin A1c 6.2 % (4-6) H 03/02/22 07:39 Calcium 9.7 mg/dL (8.4-10.2) 03/02/22 07:39 Total Bilirubin 0.40 mg/dL (0.1-1.2) 03/02/22 07:39 AST 15 units/L (5-40) 03/02/22 07:39 ALT 9 units/L (7-56) 03/02/22 07:39 Alkaline Phosphatase 76 units/L (35-129) 03/02/22 07:39 Total Protein 6.8 g/dL (6.3-8.2) 03/02/22 07:39 Albumin 4.4 g/dL (3.9-5) 03/02/22 07:39 Albumin/Globulin Ratio 1.8 % 03/02/22 07:39 Triglycerides 104 mg/dL (2-149) 03/02/22 07:39 Cholesterol 175 mg/dL (50-199) 03/02/22 07:39 LDL Cholesterol Direct 87 mg/dL (50-130) 03/02/22 07:39 HDL Cholesterol 67 mg/dL (40-59) H 03/02/22 07:39 Cholesterol/HDL Ratio 2.61 % 03/02/22 07:39 TSH 2.380 mlU/mL (0.270-4.200) 03/02/22 07:39 [place]/IV: Voiding Method Toilet Active Medications - Current Medications Current Medications: Generic Name Dose Route Start Last Admin Trade Name Freq PRN Reason Stop Dose Admin Acetaminophen 650 mg 03/03/22 10:30 03/04/22 09:31 Acetaminophen 325 Mg Tab PO 650 mg Q6H PRN Administration Pain, Mild (1-3) Aripiprazole 5 mg 03/04/22 10:00 03/04/22 12:07 Aripiprazole 5 Mg Tab PO Not Given QDAY AYAD Atenolol 50 mg 03/02/22 10:00 03/04/22 10:41 Atenolol 50 Mg Tab PO Not Given BID [facility] Atorvastatin Calcium 20 mg 03/02/22 22:00 03/03/22 22:00 Atorvastatin 20 Mg Tab PO 20 mg QHS AYAD Administration Citalopram Hydrobromide 40 mg 03/02/22 10:00 03/04/22 09:31 Citalopram 20 Mg Tab PO 40 mg QDAY AYAD Administration Ferrous Sulfate 325 mg 03/02/22 10:00 03/04/22 09:30 Ferrous Sulfate 325 Mg Tab PO 325 mg BID AYAD Administration Folic Acid 1 mg 03/02/22 10:00 03/04/22 09:30 Folic Acid 1 Mg Tab PO 1 mg BID AYAD Administration Hydrochlorothiazide 25 mg 03/02/22 10:00 03/04/22 09:31 Hydrochlorothiazide 25 Mg Tab PO Not Given DAILY AYAD Levetiracetam 500 mg 03/02/22 02:00 03/04/22 09:31 Levetiracetam 500 Mg Tab PO 500 mg BID AYAD Administration Levothyroxine Sodium 25 mcg 03/03/22 06:00 03/04/22 05:41 Levothyroxine 25 Mcg Tab PO 25 mcg DAILY@0600 AY[facility] Administration Levothyroxine Sodium 50 mcg 03/03/22 06:00 03/04/22 05:42 Levothyroxine 50 Mcg Tab PO 50 mcg DAILY@0600 AYAD Administration Melatonin 5 mg 03/02/22 01:25 03/02/22 21:07 Melatonin 5 Mg Tab PO 5 mg QHS PRN Administration Sleep Ondansetron HCl 4 mg 03/02/22 10:00 03/04/22 09:31 Ondansetron 4 Mg Odt Tab PO Not Given BID [facility]YAD Trazodone HCl 50 mg 03/02/22 22:00 03/03/22 21:59 Trazodone 50 Mg Tab PO 50 mg QHS AYAD Administration Ziprasidone 20 mg 03/02/22 10:00 Ziprasidone Mesylate 20 Mg Vial IM Q4H PRN Agitation
[2022-03-04] MEDS: NEOMY 3.5 MG/BACIT 400 UNITS/POLY B 5000 UNITS/GM OINT PACKET TP SCH (21:44)
[2022-03-04] MEDS: traZODone 50 MG TAB PO SCH ×2 (21:44→22:03)
[2022-03-05] MEDS: LEVOTHYROXINE 25 MCG TAB PO SCH (06:20)
[2022-03-05] MEDS: LEVOTHYROXINE 50 MCG TAB PO SCH (06:20)
[2022-03-05] MEDS: hydroCHLOROthiazide 25 MG TAB PO SCH (09:24)
[2022-03-05] MEDS: FERROUS SULFATE 325 MG TAB PO SCH ×2 (09:24→21:51)
[2022-03-05] MEDS: CITALOPRAM 20 MG TAB PO SCH (09:24)
[2022-03-05] MEDS: levETIRAcetam 500 MG TAB PO SCH ×2 (09:24→21:37)
[2022-03-05] MEDS: FOLIC ACID 1 MG TAB PO SCH ×3 (09:24→22:36)
[2022-03-05] MEDS: NEOMY 3.5 MG/BACIT 400 UNITS/POLY B 5000 UNITS/GM OINT PACKET TP SCH ×3 (09:25→21:36)
[2022-03-05] MEDS: ACETAMINOPHEN 325 MG TAB PO PRN (09:30)
[2022-03-05] MEDS: ARIPiprazole 5 MG TAB PO SCH (09:32)
[2022-03-05] MEDS: atenoloL 50 MG TAB PO SCH ×2 (09:32→21:37)
--- NOTE | 2022-03-05 10:14 | Progress Note ---
Subjective Date of service: 03/05/22 Subjective Comment: The patient was seen today. She appears delusional. She is sitting in the dayroom, and tells me to turn off the light because her will cause her to have a seizure. She has her eyes partially covered with her face mask. She says she had a great night sleep. The patient denies SI/HI. She says "no I am a Sikh woman and I don't believe in hurting anybody in this world." She says "life is life." The patient says she slept great last night. She denies hallucinations. The patient says "reality is bad enough." She then laughs. 03/04:The patient was seen this morning. she continues to be somatically focuses, and tangential. She states her mood is good. She denies any current suicidal/homicidal ideation and denies hallucinations. Start Abilify 5mg po Daily. 03/03:The patient was seen this morning. she continues to be somatically focuses, circumstantial and flight of ideas. She states her mood is good. she denies any current suicidal/homicidal ideation and denies hallucinations. REVIEW OF SYSTEMS Constitutional: Negative for weight loss ENT: Negative for stridor Respiratory: Negative for cough or hemoptysis All other systems reviewed and are negative MENTAL STATUS EXAMINATION General Appearance and Behavior: Age appropriate, good hygiene, wearing appropriate clothes, fair eye contact, calm, cooperative and polite Cooperation: Cooperative Psychomotor Behavior: Psychomotor normal Mood: Depressed Affect and affective range: congruent with stated mood Thought Process: flight of ideas/ Tangential Thought Content: delusions Speech: normal tone and pace Suicidal Ideation: Denies Homicidal Ideation: Denies Hallucinations: Denies Delusions: Yes Impulse Control: Limited Insight and Judgment: Limited insight and judgment Memory: Limited Attention: attentive Orientation: Alert, oriented Assessment and Plan Major depressive disorder with psychotic features Treatment Plan Patient admitted for inpatient psychiatric evaluation, medication adjustment and close monitoring The patient's behavior, mood, sleep and appetite will be closely monitored. Patient enrolled in individual and group therapeutic sessions and encouraged to attend. Patient provided with a safe and structured environment. Patient's physical health needs will be addressed by the Hospitalist. Hospitalist Consulted Labs including CBC, CMP, Lipid profile and Hemoglobin A1C levels ordered for baseline reference Social Assessment will be completed and the Event Av Operator will work with patient and family to ensure a suitable and safe disposition Medication adjustment will be made as clinically indicated Continue meds Usual Wellness Orthodoxy/Preservation: - Start Trazodone 50 mg po QHS & 50 mg po QHS PRN between 10 PM & 2 AM for insomnia - Start Melatonin 5 mg po QHS to promote circadian rhythm The patient agreed on the treatment plan, understood the risk, benefit, alternative treatment, potential consequence of no treatment, and gave informed consent. Estimated days: 6 Post hospital care: primary care provider, psychiatric provider Case staffed with Dr. Walsh Medications and Allergies Allergies Allergy/AdvReac Type Severity Reaction Status Date / Time aspirin Allergy Unknown Unverified 03/01/22 16:48 ceftriaxone Allergy Unknown Unverified 03/01/22 16:45 ginkgo biloba Allergy Unknown Unverified 03/01/22 16:48 oxycodone Allergy Unknown Unverified 03/01/22 16:45 Home Medications Medication Instructions Recorded Confirmed Last Taken Type Atenolol 50 mg PO BID 03/01/22 03/01/22 02/26/22 History Celexa 40 mg PO DAILY 03/01/22 03/01/22 02/26/22 History Crestor 5 mg PO DAILY 03/01/22 03/01/22 02/26/22 History Ferrous Sulfate 325 mg PO BID 03/01/22 03/01/22 02/26/22 History Folic Acid 1 mg PO BID 03/01/22 03/01/22 02/26/22 History Levothyroxine 25 mcg PO DAILY 03/01/22 03/01/22 02/26/22 History Levothyroxine 50 mcg PO DAILY 03/01/22 03/01/22 02/26/22 History Melatonin 5 mg SUBLINGUAL HS 03/01/22 03/01/22 02/26/22 History Ondansetron 4 mg PO BID 03/01/22 03/01/22 02/26/22 History hydroCHLOROthiazide [HCTZ] 25 mg PO DAILY 03/01/22 03/01/22 02/26/22 History levETIRAcetam [Keppra TAB] 500 mg PO BID 03/01/22 03/01/22 02/26/22 History propranoloL 20 mg PO BID 03/01/22 03/01/22 Unknown History Active Meds: Active Medications Acetaminophen (Acetaminophen 325 Mg Tab) 650 mg PO Q6H PRN PRN Reason: Pain, Mild (1-3) Last Admin: 03/05/22 09:30 Dose: 650 mg Aripiprazole (Aripiprazole 5 Mg Tab) 5 mg PO QDAY [facility] Last Admin: 03/05/22 09:32 Dose: Not Given Atenolol (Atenolol 50 Mg Tab) 50 mg PO BID [facility] Last Admin: 03/05/22 09:32 Dose: Not Given Atorvastatin Calcium (Atorvastatin 20 Mg Tab) 20 mg PO QHS [facility] Last Admin: 03/04/22 21:55 Dose: Not Given Citalopram Hydrobromide (Citalopram 20 Mg Tab) 40 mg PO QDAY [facility] Last Admin: 03/05/22 09:24 Dose: 40 mg Ferrous Sulfate (Ferrous Sulfate 325 Mg Tab) 325 mg PO BID [facility] Last Admin: 03/05/22 09:24 Dose: 325 mg Folic Acid (Folic Acid 1 Mg Tab) 1 mg PO BID [facility] Last Admin: 03/05/22 09:24 Dose: 1 mg Hydrochlorothiazide (Hydrochlorothiazide 25 Mg Tab) 25 mg PO DAILY [facility] Last Admin: 03/05/22 09:24 Dose: 25 mg Levetiracetam (Levetiracetam 500 Mg Tab) 500 mg PO BID [facility] Last Admin: 03/05/22 09:24 Dose: 500 mg Levothyroxine Sodium (Levothyroxine 25 Mcg Tab) 25 mcg PO DAILY@0600 [facility] Last Admin: 03/05/22 06:20 Dose: 25 mcg Levothyroxine Sodium (Levothyroxine 50 Mcg Tab) 50 mcg PO DAILY@0600 [facility] Last Admin: 03/05/22 06:20 Dose: 50 mcg Melatonin (Melatonin 5 Mg Tab) 5 mg PO QHS PRN PRN Reason: Sleep Last Admin: 03/02/22 21:07 Dose: 5 mg Neomycin/Polymyxin/Bacitracin (Neomy 3.5 Mg/Bacit 400 Units/Poly B 5000 Units/Gm Oint Packet) 1 applic TP TID [facility] Last Admin: 03/05/22 09:25 Dose: 1 applic Trazodone HCl (Trazodone 50 Mg Tab) 50 mg PO QHS [facility] Last Admin: 03/04/22 22:03 Dose: Not Given Ziprasidone (Ziprasidone Mesylate 20 Mg Vial) 20 mg IM Q4H PRN PRN Reason: Agitation Results - Results Labs/Vitals: Laboratory Last Values WBC 7.9 K/mm3 (4.5-11.0) 03/02/22 07:39 RBC 4.45 M/mm3 (3.65-5.03) 03/02/22 07:39 Hgb 12.6 gm/dl (10.1-14.3) 03/02/22 07:39 Hct 38.2 % (30.3-42.9) 03/02/22 07:39 MCV 86 fl (79-97) 03/02/22 07:39 MCH 28 pg (28-32) 03/02/22 07:39 MCHC 33 % (30-34) 03/02/22 07:39 RDW 14.2 % (13.2-15.2) 03/02/22 07:39 Plt Count 269 K/mm3 (140-440) 03/02/22 07:39 Lymph % (Auto) 20.5 % (13.4-35.0) 03/02/22 07:39 Craig % (Auto) 10.4 % (0.0-7.3) H 03/02/22 07:39 Eos % (Auto) 3.5 % (0.0-4.3) 03/02/22 07:39 Baso % (Auto) 0.3 % (0.0-1.8) 03/02/22 07:39 Lymph # (Auto) 1.6 K/mm3 (1.2-5.4) 03/02/22 07:39 Craig # (Auto) 0.8 K/mm3 (0.0-0.8) 03/02/22 07:39 Eos # (Auto) 0.3 K/mm3 (0.0-0.4) 03/02/22 07:39 Baso # (Auto) 0.0 K/mm3 (0.0-0.1) 03/02/22 07:39 Seg Neutrophils % 65.3 % (40.0-70.0) 03/02/22 07:39 Seg Neutrophils # 5.1 K/mm3 (1.8-7.7) 03/02/22 07:39 Sodium 144 mmol/L (137-145) 03/02/22 07:39 Potassium 3.9 mmol/L (3.6-5.0) 03/02/22 07:39 Chloride 104.1 mmol/L (98-107) 03/02/22 07:39 Carbon Dioxide 26 mmol/L (22-30) 03/02/22 07:39 Anion Gap 18 mmol/L 03/02/22 07:39 BUN 7 mg/dL (7-17) 03/02/22 07:39 Creatinine 0.7 mg/dL (0.6-1.2) 03/02/22 07:39 Estimated GFR > 60 ml/min 03/02/22 07:39 BUN/Creatinine Ratio 10 % 03/02/22 07:39 Glucose 105 mg/dL (65-100) H 03/02/22 07:39 Hemoglobin A1c 6.2 % (4-6) H 03/02/22 07:39 Calcium 9.7 mg/dL (8.4-10.2) 03/02/22 07:39 Total Bilirubin 0.40 mg/dL (0.1-1.2) 03/02/22 07:39 AST 15 units/L (5-40) 03/02/22 07:39 ALT 9 units/L (7-56) 03/02/22 07:39 Alkaline Phosphatase 76 units/L (35-129) 03/02/22 07:39 Total Protein 6.8 g/dL (6.3-8.2) 03/02/22 07:39 Albumin 4.4 g/dL (3.9-5) 03/02/22 07:39 Albumin/Globulin Ratio 1.8 % 03/02/22 07:39 Triglycerides 104 mg/dL (2-149) 03/02/22 07:39 Cholesterol 175 mg/dL (50-199) 03/02/22 07:39 LDL Cholesterol Direct 87 mg/dL (50-130) 03/02/22 07:39 HDL Cholesterol 67 mg/dL (40-59) H 03/02/22 07:39 Cholesterol/HDL Ratio 2.61 % 03/02/22 07:39 TSH 2.380 mlU/mL (0.270-4.200) 03/02/22 07:39 Last Vital Signs Temp 98.5 F 03/05/22 08:12 Pulse 72 03/05/22 09:32 Resp 18 03/05/22 08:12 BP 123/54 03/05/22 09:32 Pulse Ox 98 03/05/22 08:12
[2022-03-05] MEDS: traZODone 50 MG TAB PO SCH (21:37)
--- NOTE | 2022-03-05 21:52 | Progress Note ---
Assessment and Plan - Patient Problems (1) Vascular dementia with behavior disturbance Current Visit: Yes Status: Acute Plan to address problem: Verbal prompting, verbal redirection, benzodiazepine therapy as clinically indicated. (2) Cerebral atherosclerosis Current Visit: Yes Status: Acute Plan to address problem: Risk factor reduction, antiplatelet therapy as clinically indicated. (3) Hypertension Current Visit: Yes Status: Acute Qualifiers: Hypertension type: primary hypertension Qualified Code(s): I10 - Essential (primary) hypertension Plan to address problem: Monitor blood pressure every shift, continue medical management. (4) Hypothyroidism Current Visit: Yes Status: Acute Qualifiers: Hypothyroidism type: unspecified Qualified Code(s): E03.9 - Hypothyroidism, unspecified Plan to address problem: Continue current therapy, supportive care. Outpatient follow-up with primary care physician. (5) Hyperlipidemia Current Visit: Yes Status: Acute Qualifiers: Hyperlipidemia type: mixed hyperlipidemia Qualified Code(s): E78.2 - Mixed hyperlipidemia Plan to address problem: Low-cholesterol diet, supportive care. (6) Major depression Current Visit: Yes Status: Acute Qualifiers: Major depression episode severity: unspecified Plan to address problem: Continue medical management, cognitive behavioral therapy as clinically indicated. (7) Generalized anxiety disorder Current Visit: Yes Status: Acute Plan to address problem: Benzodiazepine therapy as clinically indicated, verbal redirection. (8) Advance care planning Current Visit: Yes Status: Acute Plan to address problem: Disease education conducted, care plan discussed, diagnoses discussed, prognosis discussed, patient is full code. Patient acknowledges understanding and agreement with care plan, +30 minutes. (9) Preventative health care Current Visit: Yes Status: Acute Plan to address problem: Patient counseled regarding weight loss, balanced diet, increase physical activity at discharge. +15 minutes. History Interval history: 71 YO Female with Vascular Dementia with Behavioral Disturbance, Cerebral Atherosclerosis, HTN, HLD, Hypothyroidism, Seizure DO, MDD, DISHA. Pt is admitted to [facility] for psychiatric stabilization. Consult placed by Dr. Cm for medical management. Patient seen and evaluated in the recreation room. Patient agitation/confusion improved. Patient remains comfortable. Patient remains at baseline level of cognition and function. Hospitalist Physical - Constitutional Vitals: Temp Pulse Resp BP Pulse Ox 98.9 F 91 H 18 174/64 99 03/05/22 20:48 03/05/22 21:37 03/05/22 20:48 03/05/22 21:37 03/05/22 20:48 General appearance: Present: no acute distress - EENT Eyes: Present: PERRL ENT: hearing decreased - Neck Neck: Present: supple - Respiratory Respiratory effort: normal Respiratory: bilateral: CTA - Cardiovascular Rhythm: regular Heart Sounds: Present: S1 & S2 - Extremities Extremities: no ischemia Peripheral Pulses: within normal limits - Abdominal General gastrointestinal: soft, non-tender, non-distended - Integumentary Integumentary: Present: clear, dry - Psychiatric Psychiatric: cooperative - Neurologic Neurologic: CNII-XII intact Results - Labs CBC & Chem 7: 03/02/22 07:39 03/02/22 07:39 Labs: Laboratory Last Values WBC 7.9 K/mm3 (4.5-11.0) 03/02/22 07:39 RBC 4.45 M/mm3 (3.65-5.03) 03/02/22 07:39 Hgb 12.6 gm/dl (10.1-14.3) 03/02/22 07:39 Hct 38.2 % (30.3-42.9) 03/02/22 07:39 MCV 86 fl (79-97) 03/02/22 07:39 MCH 28 pg (28-32) 03/02/22 07:39 MCHC 33 % (30-34) 03/02/22 07:39 RDW 14.2 % (13.2-15.2) 03/02/22 07:39 Plt Count 269 K/mm3 (140-440) 03/02/22 07:39 Lymph % (Auto) 20.5 % (13.4-35.0) 03/02/22 07:39 Hendricks % (Auto) 10.4 % (0.0-7.3) H 03/02/22 07:39 Eos % (Auto) 3.5 % (0.0-4.3) 03/02/22 07:39 Baso % (Auto) 0.3 % (0.0-1.8) 03/02/22 07:39 Lymph # (Auto) 1.6 K/mm3 (1.2-5.4) 03/02/22 07:39 Hendricks # (Auto) 0.8 K/mm3 (0.0-0.8) 03/02/22 07:39 Eos # (Auto) 0.3 K/mm3 (0.0-0.4) 03/02/22 07:39 Baso # (Auto) 0.0 K/mm3 (0.0-0.1) 03/02/22 07:39 Seg Neutrophils % 65.3 % (40.0-70.0) 03/02/22 07:39 Seg Neutrophils # 5.1 K/mm3 (1.8-7.7) 03/02/22 07:39 Sodium 144 mmol/L (137-145) 03/02/22 07:39 Potassium 3.9 mmol/L (3.6-5.0) 03/02/22 07:39 Chloride 104.1 mmol/L (98-107) 03/02/22 07:39 Carbon Dioxide 26 mmol/L (22-30) 03/02/22 07:39 Anion Gap 18 mmol/L 03/02/22 07:39 BUN 7 mg/dL (7-17) 03/02/22 07:39 Creatinine 0.7 mg/dL (0.6-1.2) 03/02/22 07:39 Estimated GFR > 60 ml/min 03/02/22 07:39 BUN/Creatinine Ratio 10 % 03/02/22 07:39 Glucose 105 mg/dL (65-100) H 03/02/22 07:39 Hemoglobin A1c 6.2 % (4-6) H 03/02/22 07:39 Calcium 9.7 mg/dL (8.4-10.2) 03/02/22 07:39 Total Bilirubin 0.40 mg/dL (0.1-1.2) 03/02/22 07:39 AST 15 units/L (5-40) 03/02/22 07:39 ALT 9 units/L (7-56) 03/02/22 07:39 Alkaline Phosphatase 76 units/L (35-129) 03/02/22 07:39 Total Protein 6.8 g/dL (6.3-8.2) 03/02/22 07:39 Albumin 4.4 g/dL (3.9-5) 03/02/22 07:39 Albumin/Globulin Ratio 1.8 % 03/02/22 07:39 Triglycerides 104 mg/dL (2-149) 03/02/22 07:39 Cholesterol 175 mg/dL (50-199) 03/02/22 07:39 LDL Cholesterol Direct 87 mg/dL (50-130) 03/02/22 07:39 HDL Cholesterol 67 mg/dL (40-59) H 03/02/22 07:39 Cholesterol/HDL Ratio 2.61 % 03/02/22 07:39 TSH 2.380 mlU/mL (0.270-4.200) 03/02/22 07:39 Mendoza/IV: Voiding Method Toilet Active Medications - Current Medications Current Medications: Generic Name Dose Route Start Last Admin Trade Name Freq PRN Reason Stop Dose Admin Acetaminophen 650 mg 03/03/22 10:30 03/05/22 09:30 Acetaminophen 325 Mg Tab PO 650 mg Q6H PRN Administration Pain, Mild (1-3) Aripiprazole 5 mg 03/04/22 10:00 03/05/22 09:32 Aripiprazole 5 Mg Tab PO Not Given QDAY AYAD Atenolol 50 mg 03/02/22 10:00 03/05/22 21:37 Atenolol 50 Mg Tab PO 50 mg BID AYAD Administration Atorvastatin Calcium 20 mg 03/02/22 22:00 03/05/22 21:37 Atorvastatin 20 Mg Tab PO 20 mg QHS AYAD Administration Citalopram Hydrobromide 40 mg 03/02/22 10:00 03/05/22 09:24 Citalopram 20 Mg Tab PO 40 mg QDAY AYAD Administration Ferrous Sulfate 325 mg 03/02/22 10:00 03/05/22 21:51 Ferrous Sulfate 325 Mg Tab PO 325 mg BID AYAD Administration Folic Acid 1 mg 03/02/22 10:00 03/05/22 21:37 Folic Acid 1 Mg Tab PO 1 mg BID AYAD Administration Hydrochlorothiazide 25 mg 03/02/22 10:00 03/05/22 09:24 Hydrochlorothiazide 25 Mg Tab PO 25 mg DAILY AYAD Administration Levetiracetam 500 mg 03/02/22 02:00 03/05/22 21:37 Levetiracetam 500 Mg Tab PO 500 mg BID AYAD Administration Levothyroxine Sodium 25 mcg 03/03/22 06:00 03/05/22 06:20 Levothyroxine 25 Mcg Tab PO 25 mcg DAILY@0600 AYAD Administration Levothyroxine Sodium 50 mcg 03/03/22 06:00 03/05/22 06:20 Levothyroxine 50 Mcg Tab PO 50 mcg DAILY@0600 AYAD Administration Melatonin 5 mg 03/02/22 01:25 03/02/22 21:07 Melatonin 5 Mg Tab PO 5 mg QHS PRN Administration Sleep Neomycin/Polymyxin/Bacitracin 1 applic 03/04/22 20:00 03/05/22 21:36 Neomy 3.5 Mg/Bacit 400 Units/Poly B 5000 Units/Gm Oint Packet TP Not Given TID AYAD Trazodone HCl 50 mg 03/02/22 22:00 03/05/22 21:37 Trazodone 50 Mg Tab PO 50 mg QHS AYAD Administration Ziprasidone 20 mg 03/02/22 10:00 Ziprasidone Mesylate 20 Mg Vial IM Q4H PRN Agitation
[2022-03-06] MEDS: LEVOTHYROXINE 50 MCG TAB PO SCH (06:03)
[2022-03-06] MEDS: LEVOTHYROXINE 25 MCG TAB PO SCH (06:03)
--- NOTE | 2022-03-06 08:38 | Progress Note ---
Subjective Date of service: 03/06/22 Principal diagnosis: MDD w/psychotic features Subjective Comment: The patient was seen today. She is much more quiet today. The patient says she's doing okay, but "better if she was at home." She says she slept well. She denies SI/HI or hallucinations of any kind. 03/05 The patient was seen today. She appears delusional. She is sitting in the dayroom, and tells me to turn off the light because her will cause her to have a seizure. She has her eyes partially covered with her face mask. She says she had a great night sleep. The patient denies SI/HI. She says "no I am a Sikhism woman and I don't believe in hurting anybody in this world." She says "life is life." The patient says she slept great last night. She denies hallucinations. The patient says "reality is bad enough." She then laughs. 03/04:The patient was seen this morning. she continues to be somatically focuses, and tangential. She states her mood is good. She denies any current suicidal/homicidal ideation and denies hallucinations. Start Abilify 5mg po Daily. 03/03:The patient was seen this morning. she continues to be somatically focuses, circumstantial and flight of ideas. She states her mood is good. she denies any current suicidal/homicidal ideation and denies hallucinations. REVIEW OF SYSTEMS Constitutional: Negative for weight loss ENT: Negative for stridor Respiratory: Negative for cough or hemoptysis All other systems reviewed and are negative MENTAL STATUS EXAMINATION General Appearance and Behavior: Age appropriate, good hygiene, wearing appropriate clothes, fair eye contact, calm, cooperative and polite Cooperation: Cooperative Psychomotor Behavior: Psychomotor normal Mood: Depressed Affect and affective range: congruent with stated mood Thought Process: flight of ideas/ Tangential Thought Content: delusions Speech: normal tone and pace Suicidal Ideation: Denies Homicidal Ideation: Denies Hallucinations: Denies Delusions: Yes Impulse Control: Limited Insight and Judgment: Limited insight and judgment Memory: Limited Attention: attentive Orientation: Alert, oriented Assessment and Plan Major depressive disorder with psychotic features Treatment Plan Patient admitted for inpatient psychiatric evaluation, medication adjustment and close monitoring The patient's behavior, mood, sleep and appetite will be closely monitored. Patient enrolled in individual and group therapeutic sessions and encouraged to attend. Patient provided with a safe and structured environment. Patient's physical health needs will be addressed by the Hospitalist. Hospitalist Consulted Labs including CBC, CMP, Lipid profile and Hemoglobin A1C levels ordered for baseline reference Social Assessment will be completed and the Nurse Sitter will work with patient and family to ensure a suitable and safe disposition Medication adjustment will be made as clinically indicated Continue meds Usual Wellness Congregation/Preservation: - Start Trazodone 50 mg po QHS & 50 mg po QHS PRN between 10 PM & 2 AM for insomnia - Start Melatonin 5 mg po QHS to promote circadian rhythm The patient agreed on the treatment plan, understood the risk, benefit, alternative treatment, potential consequence of no treatment, and gave informed consent. Estimated days: 6 Post hospital care: primary care provider, psychiatric provider Case staffed with Dr. Walsh Medications and Allergies Allergies Allergy/AdvReac Type Severity Reaction Status Date / Time aspirin Allergy Unknown Unverified 03/01/22 16:48 ceftriaxone Allergy Unknown Unverified 03/01/22 16:45 ginkgo biloba Allergy Unknown Unverified 03/01/22 16:48 oxycodone Allergy Unknown Unverified 03/01/22 16:45 Home Medications Medication Instructions Recorded Confirmed Last Taken Type Atenolol 50 mg PO BID 03/01/22 03/01/22 02/26/22 History Celexa 40 mg PO DAILY 03/01/22 03/01/22 02/26/22 History Crestor 5 mg PO DAILY 03/01/22 03/01/22 02/26/22 History Ferrous Sulfate 325 mg PO BID 03/01/22 03/01/22 02/26/22 History Folic Acid 1 mg PO BID 03/01/22 03/01/22 02/26/22 History Levothyroxine 25 mcg PO DAILY 03/01/22 03/01/22 02/26/22 History Levothyroxine 50 mcg PO DAILY 03/01/22 03/01/22 02/26/22 History Melatonin 5 mg SUBLINGUAL HS 03/01/22 03/01/22 02/26/22 History Ondansetron 4 mg PO BID 03/01/22 03/01/22 02/26/22 History hydroCHLOROthiazide [HCTZ] 25 mg PO DAILY 03/01/22 03/01/22 02/26/22 History levETIRAcetam [Keppra TAB] 500 mg PO BID 03/01/22 03/01/22 02/26/22 History propranoloL 20 mg PO BID 03/01/22 03/01/22 Unknown History Active Meds: Active Medications Acetaminophen (Acetaminophen 325 Mg Tab) 650 mg PO Q6H PRN PRN Reason: Pain, Mild (1-3) Last Admin: 03/05/22 09:30 Dose: 650 mg Aripiprazole (Aripiprazole 5 Mg Tab) 5 mg PO QDAY [facility] Last Admin: 03/05/22 09:32 Dose: Not Given Atenolol (Atenolol 50 Mg Tab) 50 mg PO BID [facility] Last Admin: 03/05/22 21:37 Dose: Not Given Atorvastatin Calcium (Atorvastatin 20 Mg Tab) 20 mg PO QHS [facility] Last Admin: 03/05/22 21:37 Dose: Not Given Citalopram Hydrobromide (Citalopram 20 Mg Tab) 40 mg PO QDAY [facility] Last Admin: 03/05/22 09:24 Dose: 40 mg Ferrous Sulfate (Ferrous Sulfate 325 Mg Tab) 325 mg PO BID [facility] Last Admin: 03/05/22 21:51 Dose: Not Given Folic Acid (Folic Acid 1 Mg Tab) 1 mg PO BID [facility] Last Admin: 03/05/22 22:36 Dose: Not Given Hydrochlorothiazide (Hydrochlorothiazide 25 Mg Tab) 25 mg PO DAILY [facility] Last Admin: 03/05/22 09:24 Dose: 25 mg Levetiracetam (Levetiracetam 500 Mg Tab) 500 mg PO BID [facility] Last Admin: 03/05/22 21:37 Dose: 500 mg Levothyroxine Sodium (Levothyroxine 25 Mcg Tab) 25 mcg PO DAILY@0600 [facility] Last Admin: 03/06/22 06:03 Dose: 25 mcg Levothyroxine Sodium (Levothyroxine 50 Mcg Tab) 50 mcg PO DAILY@0600 [facility] Last Admin: 03/06/22 06:03 Dose: 50 mcg Melatonin (Melatonin 5 Mg Tab) 5 mg PO QHS PRN PRN Reason: Sleep Last Admin: 03/02/22 21:07 Dose: 5 mg Neomycin/Polymyxin/Bacitracin (Neomy 3.5 Mg/Bacit 400 Units/Poly B 5000 Units/Gm Oint Packet) 1 applic TP TID [facility] Last Admin: 03/05/22 21:36 Dose: Not Given Trazodone HCl (Trazodone 50 Mg Tab) 50 mg PO QHS [facility] Last Admin: 03/05/22 21:37 Dose: Not Given Ziprasidone (Ziprasidone Mesylate 20 Mg Vial) 20 mg IM Q4H PRN PRN Reason: Agitation Results - Results Labs/Vitals: Laboratory Last Values WBC 7.9 K/mm3 (4.5-11.0) 03/02/22 07:39 RBC 4.45 M/mm3 (3.65-5.03) 03/02/22 07:39 Hgb 12.6 gm/dl (10.1-14.3) 03/02/22 07:39 Hct 38.2 % (30.3-42.9) 03/02/22 07:39 MCV 86 fl (79-97) 03/02/22 07:39 MCH 28 pg (28-32) 03/02/22 07:39 MCHC 33 % (30-34) 03/02/22 07:39 RDW 14.2 % (13.2-15.2) 03/02/22 07:39 Plt Count 269 K/mm3 (140-440) 03/02/22 07:39 Lymph % (Auto) 20.5 % (13.4-35.0) 03/02/22 07:39 [place] % (Auto) 10.4 % (0.0-7.3) H 03/02/22 07:39 Eos % (Auto) 3.5 % (0.0-4.3) 03/02/22 07:39 Baso % (Auto) 0.3 % (0.0-1.8) 03/02/22 07:39 Lymph # (Auto) 1.6 K/mm3 (1.2-5.4) 03/02/22 07:39 [place] # (Auto) 0.8 K/mm3 (0.0-0.8) 03/02/22 07:39 Eos # (Auto) 0.3 K/mm3 (0.0-0.4) 03/02/22 07:39 Baso # (Auto) 0.0 K/mm3 (0.0-0.1) 03/02/22 07:39 Seg Neutrophils % 65.3 % (40.0-70.0) 03/02/22 07:39 Seg Neutrophils # 5.1 K/mm3 (1.8-7.7) 03/02/22 07:39 Sodium 144 mmol/L (137-145) 03/02/22 07:39 Potassium 3.9 mmol/L (3.6-5.0) 03/02/22 07:39 Chloride 104.1 mmol/L (98-107) 03/02/22 07:39 Carbon Dioxide 26 mmol/L (22-30) 03/02/22 07:39 Anion Gap 18 mmol/L 03/02/22 07:39 BUN 7 mg/dL (7-17) 03/02/22 07:39 Creatinine 0.7 mg/dL (0.6-1.2) 03/02/22 07:39 Estimated GFR > 60 ml/min 03/02/22 07:39 BUN/Creatinine Ratio 10 % 03/02/22 07:39 Glucose 105 mg/dL (65-100) H 03/02/22 07:39 Hemoglobin A1c 6.2 % (4-6) H 03/02/22 07:39 Calcium 9.7 mg/dL (8.4-10.2) 03/02/22 07:39 Total Bilirubin 0.40 mg/dL (0.1-1.2) 03/02/22 07:39 AST 15 units/L (5-40) 03/02/22 07:39 ALT 9 units/L (7-56) 03/02/22 07:39 Alkaline Phosphatase 76 units/L (35-129) 03/02/22 07:39 Total Protein 6.8 g/dL (6.3-8.2) 03/02/22 07:39 Albumin 4.4 g/dL (3.9-5) 03/02/22 07:39 Albumin/Globulin Ratio 1.8 % 03/02/22 07:39 Triglycerides 104 mg/dL (2-149) 03/02/22 07:39 Cholesterol 175 mg/dL (50-199) 03/02/22 07:39 LDL Cholesterol Direct 87 mg/dL (50-130) 03/02/22 07:39 HDL Cholesterol 67 mg/dL (40-59) H 03/02/22 07:39 Cholesterol/HDL Ratio 2.61 % 03/02/22 07:39 TSH 2.380 mlU/mL (0.270-4.200) 03/02/22 07:39 Last Vital Signs Temp 98.9 F 03/05/22 20:48 Pulse 91 H 03/05/22 21:37 Resp 18 03/05/22 20:48 BP 174/64 03/05/22 21:37 Pulse Ox 99 03/05/22 20:48
[2022-03-06] MEDS: NEOMY 3.5 MG/BACIT 400 UNITS/POLY B 5000 UNITS/GM OINT PACKET TP SCH ×3 (08:44→20:16)
[2022-03-06] MEDS: CITALOPRAM 20 MG TAB PO SCH (09:43)
[2022-03-06] MEDS: FERROUS SULFATE 325 MG TAB PO SCH ×2 (09:44→21:34)
[2022-03-06] MEDS: FOLIC ACID 1 MG TAB PO SCH ×2 (09:44→21:34)
[2022-03-06] MEDS: levETIRAcetam 500 MG TAB PO SCH ×2 (09:44→21:34)
[2022-03-06] MEDS: hydroCHLOROthiazide 25 MG TAB PO SCH (09:44)
[2022-03-06] MEDS: atenoloL 50 MG TAB PO SCH ×2 (09:45→21:35)
[2022-03-06] MEDS: ARIPiprazole 5 MG TAB PO SCH (09:45)
[2022-03-06] MEDS: ACETAMINOPHEN 325 MG TAB PO PRN ×2 (10:38→21:35)
[2022-03-06] MEDS: traZODone 50 MG TAB PO SCH (21:39)
[2022-03-07] MEDS: LEVOTHYROXINE 50 MCG TAB PO SCH (06:10)
[2022-03-07] MEDS: LEVOTHYROXINE 25 MCG TAB PO SCH (06:11)
[2022-03-07] MEDS: NEOMY 3.5 MG/BACIT 400 UNITS/POLY B 5000 UNITS/GM OINT PACKET TP SCH ×3 (10:05→20:50)
[2022-03-07] MEDS: FOLIC ACID 1 MG TAB PO SCH ×2 (10:06→21:14)
[2022-03-07] MEDS: FERROUS SULFATE 325 MG TAB PO SCH ×2 (10:06→21:14)
[2022-03-07] MEDS: levETIRAcetam 500 MG TAB PO SCH ×2 (10:06→21:14)
[2022-03-07] MEDS: CITALOPRAM 20 MG TAB PO SCH (10:07)
[2022-03-07] MEDS: ACETAMINOPHEN 325 MG TAB PO PRN ×2 (10:08→21:15)
[2022-03-07] MEDS: hydroCHLOROthiazide 25 MG TAB PO SCH (10:11)
[2022-03-07] MEDS: ARIPiprazole 5 MG TAB PO SCH (10:11)
[2022-03-07] MEDS: atenoloL 50 MG TAB PO SCH ×2 (10:11→21:16)
--- NOTE | 2022-03-07 10:32 | Progress Note ---
Subjective Date of service: 03/07/22 Principal diagnosis: MDD w/psychotic features Subjective Comment: The patient was seen today. She is delusional and refers to herself as Dr. Carlos. She says she is dehydrated. She also says she has "long COVID and seizures." She say "if you all don't know what long COVID is yall need to look it up." The patient says she has seizures on one part of her brain and covid on the other side. She denies SI/HI or hallucinations of any kind. The patient states her daughter took over things illegally. Will increase the Abilify 10mg po daily. Spoke with the daughter about the patient's progress. She says they have been looking for the patient a place to go. She says they are looking at memory care and other facilities but, states she has not put anything into place. She says she was told her mother would be discharging Tuesday, and states there is nowhere for her mother to go because she has no where to place her. 03/06 The patient was seen today. She is much more quiet today. The patient says she's doing okay, but "better if she was at home." She says she slept well. She denies SI/HI or hallucinations of any kind. 03/05 The patient was seen today. She appears delusional. She is sitting in the dayroom, and tells me to turn off the light because her will cause her to have a seizure. She has her eyes partially covered with her face mask. She says she had a great night sleep. The patient denies SI/HI. She says "no I am a Restorationism woman and I don't believe in hurting anybody in this world." She says "life is life." The patient says she slept great last night. She denies hallucinations. The patient says "reality is bad enough." She then laughs. 03/04:The patient was seen this morning. she continues to be somatically focuses, and tangential. She states her mood is good. She denies any current suicidal/homicidal ideation and denies hallucinations. Start Abilify 5mg po Daily. 03/03:The patient was seen this morning. she continues to be somatically focuses, circumstantial and flight of ideas. She states her mood is good. she denies any current suicidal/homicidal ideation and denies hallucinations. REVIEW OF SYSTEMS Constitutional: Negative for weight loss ENT: Negative for stridor Respiratory: Negative for cough or hemoptysis All other systems reviewed and are negative MENTAL STATUS EXAMINATION General Appearance and Behavior: Age appropriate, good hygiene, wearing appropriate clothes, fair eye contact, calm, cooperative and polite Cooperation: Cooperative Psychomotor Behavior: Psychomotor normal Mood: Depressed Affect and affective range: congruent with stated mood Thought Process: flight of ideas/ Tangential Thought Content: delusions Speech: normal tone and pace Suicidal Ideation: Denies Homicidal Ideation: Denies Hallucinations: Denies Delusions: Yes Impulse Control: Limited Insight and Judgment: Limited insight and judgment Memory: Limited Attention: attentive Orientation: Alert, oriented Assessment and Plan Major depressive disorder with psychotic features Treatment Plan Patient admitted for inpatient psychiatric evaluation, medication adjustment and close monitoring The patient's behavior, mood, sleep and appetite will be closely monitored. Patient enrolled in individual and group therapeutic sessions and encouraged to attend. Patient provided with a safe and structured environment. Patient's physical health needs will be addressed by the Hospitalist. Hospitalist Consulted Labs including CBC, CMP, Lipid profile and Hemoglobin A1C levels ordered for baseline reference Social Assessment will be completed and the Dry Heat Cabinet Attendant will work with patient and family to ensure a suitable and safe disposition Medication adjustment will be made as clinically indicated Increase Abilify 10mg po daily Usual Wellness Christian/Preservation: - Start Trazodone 50 mg po QHS & 50 mg po QHS PRN between 10 PM & 2 AM for insomnia - Start Melatonin 5 mg po QHS to promote circadian rhythm The patient agreed on the treatment plan, understood the risk, benefit, alternative treatment, potential consequence of no treatment, and gave informed consent. Estimated days: 6 Post hospital care: primary care provider, psychiatric provider Case staffed with Dr. Walsh Medications and Allergies Allergies Allergy/AdvReac Type Severity Reaction Status Date / Time aspirin Allergy Unknown Unverified 03/01/22 16:48 ceftriaxone Allergy Unknown Unverified 03/01/22 16:45 ginkgo biloba Allergy Unknown Unverified 03/01/22 16:48 oxycodone Allergy Unknown Unverified 03/01/22 16:45 Home Medications Medication Instructions Recorded Confirmed Last Taken Type Atenolol 50 mg PO BID 05/03/01/22 02/26/22 History Celexa 40 mg PO DAILY 03/01/22 03/01/22 02/26/22 History Crestor 5 mg PO DAILY 03/01/22 03/01/22 02/26/22 History Ferrous Sulfate 325 mg PO BID 03/01/22 03/01/22 02/26/22 History Folic Acid 1 mg PO BID 03/01/22 03/01/22 02/26/22 History Levothyroxine 25 mcg PO DAILY 03/01/22 03/01/22 02/26/22 History Levothyroxine 50 mcg PO DAILY 03/01/22 03/01/22 02/26/22 History Melatonin 5 mg SUBLINGUAL HS 03/01/22 03/01/22 02/26/22 History Ondansetron 4 mg PO BID 03/01/22 03/01/22 02/26/22 History hydroCHLOROthiazide [HCTZ] 25 mg PO DAILY 03/01/22 03/01/22 02/26/22 History levETIRAcetam [Keppra TAB] 500 mg PO BID 03/01/22 03/01/22 02/26/22 History propranoloL 20 mg PO BID 03/01/22 03/01/22 Unknown History Active Meds: Active Medications Acetaminophen (Acetaminophen 325 Mg Tab) 650 mg PO Q6H PRN PRN Reason: Pain, Mild (1-3) Last Admin: 03/07/22 10:08 Dose: 650 mg Aripiprazole (Aripiprazole 5 Mg Tab) 5 mg PO QDAY [facility] Last Admin: 03/07/22 10:11 Dose: Not Given Atenolol (Atenolol 50 Mg Tab) 50 mg PO BID [facility] Last Admin: 03/07/22 10:11 Dose: Not Given Atorvastatin Calcium (Atorvastatin 20 Mg Tab) 20 mg PO QHS [facility] Last Admin: 03/06/22 21:35 Dose: 20 mg Citalopram Hydrobromide (Citalopram 20 Mg Tab) 40 mg PO QDAY [facility] Last Admin: 03/07/22 10:07 Dose: 40 mg Ferrous Sulfate (Ferrous Sulfate 325 Mg Tab) 325 mg PO BID [facility] Last Admin: 03/07/22 10:06 Dose: 325 mg Folic Acid (Folic Acid 1 Mg Tab) 1 mg PO BID [facility] Last Admin: 03/07/22 10:06 Dose: 1 mg Hydrochlorothiazide (Hydrochlorothiazide 25 Mg Tab) 25 mg PO DAILY [facility] Last Admin: 03/07/22 10:11 Dose: Not Given Levetiracetam (Levetiracetam 500 Mg Tab) 500 mg PO BID [facility] Last Admin: 03/07/22 10:06 Dose: 500 mg Levothyroxine Sodium (Levothyroxine 25 Mcg Tab) 25 mcg PO DAILY@0600 [facility] Last Admin: 03/07/22 06:11 Dose: 25 mcg Levothyroxine Sodium (Levothyroxine 50 Mcg Tab) 50 mcg PO DAILY@0600 [facility] Last Admin: 03/07/22 06:10 Dose: 50 mcg Melatonin (Melatonin 5 Mg Tab) 5 mg PO QHS PRN PRN Reason: Sleep Last Admin: 03/02/22 21:07 Dose: 5 mg Neomycin/Polymyxin/Bacitracin (Neomy 3.5 Mg/Bacit 400 Units/Poly B 5000 Units/Gm Oint Packet) 1 applic TP TID [facility] Last Admin: 03/07/22 10:05 Dose: 1 applic Trazodone HCl (Trazodone 50 Mg Tab) 50 mg PO QHS [facility] Last Admin: 03/06/22 21:39 Dose: Not Given Ziprasidone (Ziprasidone Mesylate 20 Mg Vial) 20 mg IM Q4H PRN PRN Reason: Agitation Results - Results Labs/Vitals: Laboratory Last Values WBC 7.9 K/mm3 (4.5-11.0) 03/02/22 07:39 RBC 4.45 M/mm3 (3.65-5.03) 03/02/22 07:39 Hgb 12.6 gm/dl (10.1-14.3) 03/02/22 07:39 Hct 38.2 % (30.3-42.9) 03/02/22 07:39 MCV 86 fl (79-97) 03/02/22 07:39 MCH 28 pg (28-32) 03/02/22 07:39 MCHC 33 % (30-34) 03/02/22 07:39 RDW 14.2 % (13.2-15.2) 03/02/22 07:39 Plt Count 269 K/mm3 (140-440) 03/02/22 07:39 Lymph % (Auto) 20.5 % (13.4-35.0) 03/02/22 07:39 [place] % (Auto) 10.4 % (0.0-7.3) H 03/02/22 07:39 Eos % (Auto) 3.5 % (0.0-4.3) 03/02/22 07:39 Baso % (Auto) 0.3 % (0.0-1.8) 03/02/22 07:39 Lymph # (Auto) 1.6 K/mm3 (1.2-5.4) 03/02/22 07:39 [place] # (Auto) 0.8 K/mm3 (0.0-0.8) 03/02/22 07:39 Eos # (Auto) 0.3 K/mm3 (0.0-0.4) 03/02/22 07:39 Baso # (Auto) 0.0 K/mm3 (0.0-0.1) 03/02/22 07:39 Seg Neutrophils % 65.3 % (40.0-70.0) 03/02/22 07:39 Seg Neutrophils # 5.1 K/mm3 (1.8-7.7) 03/02/22 07:39 Sodium 144 mmol/L (137-145) 03/02/22 07:39 Potassium 3.9 mmol/L (3.6-5.0) 03/02/22 07:39 Chloride 104.1 mmol/L (98-107) 03/02/22 07:39 Carbon Dioxide 26 mmol/L (22-30) 03/02/22 07:39 Anion Gap 18 mmol/L 03/02/22 07:39 BUN 7 mg/dL (7-17) 03/02/22 07:39 Creatinine 0.7 mg/dL (0.6-1.2) 03/02/22 07:39 Estimated GFR > 60 ml/min 03/02/22 07:39 BUN/Creatinine Ratio 10 % 03/02/22 07:39 Glucose 105 mg/dL (65-100) H 03/02/22 07:39 Hemoglobin A1c 6.2 % (4-6) H 03/02/22 07:39 Calcium 9.7 mg/dL (8.4-10.2) 03/02/22 07:39 Total Bilirubin 0.40 mg/dL (0.1-1.2) 03/02/22 07:39 AST 15 units/L (5-40) 03/02/22 07:39 ALT 9 units/L (7-56) 03/02/22 07:39 Alkaline Phosphatase 76 units/L (35-129) 03/02/22 07:39 Total Protein 6.8 g/dL (6.3-8.2) 03/02/22 07:39 Albumin 4.4 g/dL (3.9-5) 03/02/22 07:39 Albumin/Globulin Ratio 1.8 % 03/02/22 07:39 Triglycerides 104 mg/dL (2-149) 03/02/22 07:39 Cholesterol 175 mg/dL (50-199) 03/02/22 07:39 LDL Cholesterol Direct 87 mg/dL (50-130) 03/02/22 07:39 HDL Cholesterol 67 mg/dL (40-59) H 03/02/22 07:39 Cholesterol/HDL Ratio 2.61 % 03/02/22 07:39 TSH 2.380 mlU/mL (0.270-4.200) 03/02/22 07:39 Last Vital Signs Temp 98.2 F 03/07/22 08:19 Pulse 55 L 03/07/22 10:11 Resp 20 03/07/22 08:19 BP 130/50 03/07/22 10:11 Pulse Ox 99 03/07/22 08:19
[2022-03-07] MEDS: traZODone 50 MG TAB PO SCH (21:16)
[2022-03-08] MEDS: LEVOTHYROXINE 25 MCG TAB PO SCH (05:42)
[2022-03-08] MEDS: LEVOTHYROXINE 50 MCG TAB PO SCH (05:42)
--- NOTE | 2022-03-08 09:07 | Progress Note ---
Subjective Date of service: 03/08/22 Principal diagnosis: MDD w/psychotic features Subjective Comment: The patient was seen today. She becomes upset when I told her she's might be discharging with her daughter. The patient says "If I go anywhere with her we will wreck." She says she was living at her apartment alone and doing just fine. The patient denies SI/HI or hallucinations of any kind. She says the daughter is only after her money. The patient is requesting SLUMS test performed on the patient. She scored a 26 which places her with mild nerocognitive disorder. I spoke with the daughter, Yaima again. She says her and her brother contest the patient being discharge because she has nowhere to go. She says no one has power of supervisor record press for this patient and the patient will not be coming back to her house. She says she informed the SW they were looking for a memory care or somewhere for the patient. Spoke with Dr. walsh, and he initially says keep the patient for another 24 hours. He then says refer to SW to work things out with family. 03/08 The patient was seen today. She is delusional and refers to herself as Dr. Carlos. She says she is dehydrated. She also says she has "long COVID and seizures." She say "if you all don't know what long COVID is yall need to look it up." The patient says she has seizures on one part of her brain and covid on the other side. She denies SI/HI or hallucinations of any kind. The patient states her daughter took over things illegally. Will increase the Abilify 10mg po daily. 03/07 Spoke with the daughter about the patient's progress. She says they have been looking for the patient a place to go. She says they are looking at memory care and other facilities but, states she has not put anything into place. She says she was told her mother would be discharging Tuesday, and states there is nowhere for her mother to go because she has no where to place her. 03/06 The patient was seen today. She is much more quiet today. The patient says she's doing okay, but "better if she was at home." She says she slept well. She denies SI/HI or hallucinations of any kind. 03/05 The patient was seen today. She appears delusional. She is sitting in the dayroom, and tells me to turn off the light because her will cause her to have a seizure. She has her eyes partially covered with her face mask. She says she had a great night sleep. The patient denies SI/HI. She says "no I am a Taoism woman and I don't believe in hurting anybody in this world." She says "life is life." The patient says she slept great last night. She denies hallucinations. The patient says "reality is bad enough." She then laughs. 03/04:The patient was seen this morning. she continues to be somatically focuses, and tangential. She states her mood is good. She denies any current suicidal/homicidal ideation and denies hallucinations. Start Abilify 5mg po Daily. 03/03:The patient was seen this morning. she continues to be somatically focuses, circumstantial and flight of ideas. She states her mood is good. she denies any current suicidal/homicidal ideation and denies hallucinations. REVIEW OF SYSTEMS Constitutional: Negative for weight loss ENT: Negative for stridor Respiratory: Negative for cough or hemoptysis All other systems reviewed and are negative MENTAL STATUS EXAMINATION General Appearance and Behavior: Age appropriate, good hygiene, wearing appropriate clothes, fair eye contact, calm, cooperative and polite Cooperation: Cooperative Psychomotor Behavior: Psychomotor normal Mood: Depressed Affect and affective range: congruent with stated mood Thought Process: flight of ideas/ Tangential Thought Content: delusions Speech: normal tone and pace Suicidal Ideation: Denies Homicidal Ideation: Denies Hallucinations: Denies Delusions: Yes Impulse Control: Limited Insight and Judgment: Limited insight and judgment Memory: Limited Attention: attentive Orientation: Alert, oriented Assessment and Plan Major depressive disorder with psychotic features Treatment Plan Patient admitted for inpatient psychiatric evaluation, medication adjustment and close monitoring The patient's behavior, mood, sleep and appetite will be closely monitored. Patient enrolled in individual and group therapeutic sessions and encouraged to attend. Patient provided with a safe and structured environment. Patient's physical health needs will be addressed by the Hospitalist. Hospitalist Consulted Labs including CBC, CMP, Lipid profile and Hemoglobin A1C levels ordered for baseline reference Social Assessment will be completed and the [facility] will work with patient and family to ensure a suitable and safe disposition Medication adjustment will be made as clinically indicated No changes made today Usual Wellness Judaism/Preservation: - Start Trazodone 50 mg po QHS & 50 mg po QHS PRN between 10 PM & 2 AM for insomnia - Start Melatonin 5 mg po QHS to promote circadian rhythm The patient agreed on the treatment plan, understood the risk, benefit, alternative treatment, potential consequence of no treatment, and gave informed consent. Estimated days: 6 Post hospital care: primary care provider, psychiatric provider Case staffed with Dr. Walsh Medications and Allergies Allergies Allergy/AdvReac Type Severity Reaction Status Date / Time aspirin Allergy Unknown Unverified 03/01/22 16:48 ceftriaxone Allergy Unknown Unverified 03/01/22 16:45 ginkgo biloba Allergy Unknown Unverified 03/01/22 16:48 oxycodone Allergy Unknown Unverified 03/01/22 16:45 Home Medications Medication Instructions Recorded Confirmed Last Taken Type Atenolol 50 mg PO BID 03/01/22 03/01/22 02/26/22 History Celexa 40 mg PO DAILY 03/01/22 03/01/22 02/26/22 History Crestor 5 mg PO DAILY 03/01/22 03/01/22 02/26/22 History Ferrous Sulfate 325 mg PO BID 03/01/22 03/01/22 02/26/22 History Folic Acid 1 mg PO BID 03/01/22 03/01/22 02/26/22 History Levothyroxine 25 mcg PO DAILY 03/01/22 03/01/22 02/26/22 History Levothyroxine 50 mcg PO DAILY 03/01/22 03/01/22 02/26/22 History Melatonin 5 mg SUBLINGUAL HS 03/01/22 03/01/22 02/26/22 History Ondansetron 4 mg PO BID 03/01/22 03/01/22 02/26/22 History hydroCHLOROthiazide [HCTZ] 25 mg PO DAILY 03/01/22 03/01/22 02/26/22 History levETIRAcetam [Keppra TAB] 500 mg PO BID 03/01/22 03/01/22 02/26/22 History propranoloL 20 mg PO BID 03/01/22 03/01/22 Unknown History Active Meds: Active Medications Acetaminophen (Acetaminophen 325 Mg Tab) 650 mg PO Q6H PRN PRN Reason: Pain, Mild (1-3) Last Admin: 03/07/22 21:15 Dose: 650 mg Aripiprazole (Aripiprazole 10 Mg Tab) 10 mg PO QDAY [facility] Atenolol (Atenolol 50 Mg Tab) 50 mg PO BID [facility] Last Admin: 03/07/22 21:16 Dose: Not Given Atorvastatin Calcium (Atorvastatin 20 Mg Tab) 20 mg PO QHS [facility] Last Admin: 03/07/22 21:14 Dose: 20 mg Citalopram Hydrobromide (Citalopram 20 Mg Tab) 40 mg PO QDAY [facility] Last Admin: 03/07/22 10:07 Dose: 40 mg Ferrous Sulfate (Ferrous Sulfate 325 Mg Tab) 325 mg PO BID [facility] Last Admin: 03/07/22 21:14 Dose: 325 mg Folic Acid (Folic Acid 1 Mg Tab) 1 mg PO BID [facility] Last Admin: 03/07/22 21:14 Dose: 1 mg Hydrochlorothiazide (Hydrochlorothiazide 25 Mg Tab) 25 mg PO DAILY [facility] Last Admin: 03/07/22 10:11 Dose: Not Given Levetiracetam (Levetiracetam 500 Mg Tab) 500 mg PO BID [facility] Last Admin: 03/07/22 21:14 Dose: 500 mg Levothyroxine Sodium (Levothyroxine 25 Mcg Tab) 25 mcg PO DAILY@0600 [facility] Last Admin: 03/08/22 05:42 Dose: 25 mcg Levothyroxine Sodium (Levothyroxine 50 Mcg Tab) 50 mcg PO DAILY@0600 [facility] Last Admin: 03/08/22 05:42 Dose: 50 mcg Melatonin (Melatonin 5 Mg Tab) 5 mg PO QHS PRN PRN Reason: Sleep Last Admin: 03/02/22 21:07 Dose: 5 mg Neomycin/Polymyxin/Bacitracin (Neomy 3.5 Mg/Bacit 400 Units/Poly B 5000 Units/Gm Oint Packet) 1 applic TP TID [facility] Last Admin: 03/07/22 20:50 Dose: 1 applic Trazodone HCl (Trazodone 50 Mg Tab) 50 mg PO QHS [facility] Last Admin: 03/07/22 21:16 Dose: Not Given Ziprasidone (Ziprasidone Mesylate 20 Mg Vial) 20 mg IM Q4H PRN PRN Reason: Agitation Results - Results Labs/Vitals: Laboratory Last Values WBC 7.9 K/mm3 (4.5-11.0) 03/02/22 07:39 RBC 4.45 M/mm3 (3.65-5.03) 03/02/22 07:39 Hgb 12.6 gm/dl (10.1-14.3) 03/02/22 07:39 Hct 38.2 % (30.3-42.9) 03/02/22 07:39 MCV 86 fl (79-97) 03/02/22 07:39 MCH 28 pg (28-32) 03/02/22 07:39 MCHC 33 % (30-34) 03/02/22 07:39 RDW 14.2 % (13.2-15.2) 03/02/22 07:39 Plt Count 269 K/mm3 (140-440) 03/02/22 07:39 Lymph % (Auto) 20.5 % (13.4-35.0) 03/02/22 07:39 [place] % (Auto) 10.4 % (0.0-7.3) H 03/02/22 07:39 Eos % (Auto) 3.5 % (0.0-4.3) 03/02/22 07:39 Baso % (Auto) 0.3 % (0.0-1.8) 03/02/22 07:39 Lymph # (Auto) 1.6 K/mm3 (1.2-5.4) 03/02/22 07:39 [place] # (Auto) 0.8 K/mm3 (0.0-0.8) 03/02/22 07:39 Eos # (Auto) 0.3 K/mm3 (0.0-0.4) 03/02/22 07:39 Baso # (Auto) 0.0 K/mm3 (0.0-0.1) 03/02/22 07:39 Seg Neutrophils % 65.3 % (40.0-70.0) 03/02/22 07:39 Seg Neutrophils # 5.1 K/mm3 (1.8-7.7) 03/02/22 07:39 Sodium 144 mmol/L (137-145) 03/02/22 07:39 Potassium 3.9 mmol/L (3.6-5.0) 03/02/22 07:39 Chloride 104.1 mmol/L (98-107) 03/02/22 07:39 Carbon Dioxide 26 mmol/L (22-30) 03/02/22 07:39 Anion Gap 18 mmol/L 03/02/22 07:39 BUN 7 mg/dL (7-17) 03/02/22 07:39 Creatinine 0.7 mg/dL (0.6-1.2) 03/02/22 07:39 Estimated GFR > 60 ml/min 03/02/22 07:39 BUN/Creatinine Ratio 10 % 03/02/22 07:39 Glucose 105 mg/dL (65-100) H 03/02/22 07:39 Hemoglobin A1c 6.2 % (4-6) H 03/02/22 07:39 Calcium 9.7 mg/dL (8.4-10.2) 03/02/22 07:39 Total Bilirubin 0.40 mg/dL (0.1-1.2) 03/02/22 07:39 AST 15 units/L (5-40) 03/02/22 07:39 ALT 9 units/L (7-56) 03/02/22 07:39 Alkaline Phosphatase 76 units/L (35-129) 03/02/22 07:39 Total Protein 6.8 g/dL (6.3-8.2) 03/02/22 07:39 Albumin 4.4 g/dL (3.9-5) 03/02/22 07:39 Albumin/Globulin Ratio 1.8 % 03/02/22 07:39 Triglycerides 104 mg/dL (2-149) 03/02/22 07:39 Cholesterol 175 mg/dL (50-199) 03/02/22 07:39 LDL Cholesterol Direct 87 mg/dL (50-130) 03/02/22 07:39 HDL Cholesterol 67 mg/dL (40-59) H 03/02/22 07:39 Cholesterol/HDL Ratio 2.61 % 03/02/22 07:39 TSH 2.380 mlU/mL (0.270-4.200) 03/02/22 07:39 Last Vital Signs Temp 98.3 F 03/07/22 22:00 Pulse 58 L 03/07/22 22:00 Resp 18 03/07/22 22:00 BP 130/52 03/07/22 22:00 Pulse Ox 97 03/07/22 22:00
[2022-03-08] MEDS: levETIRAcetam 500 MG TAB PO SCH ×2 (09:34→21:32)
[2022-03-08] MEDS: FERROUS SULFATE 325 MG TAB PO SCH ×2 (09:34→21:32)
[2022-03-08] MEDS: FOLIC ACID 1 MG TAB PO SCH ×2 (09:34→21:32)
[2022-03-08] MEDS: CITALOPRAM 20 MG TAB PO SCH (09:35)
[2022-03-08] MEDS: NEOMY 3.5 MG/BACIT 400 UNITS/POLY B 5000 UNITS/GM OINT PACKET TP SCH ×3 (09:35→20:34)
[2022-03-08] MEDS: ACETAMINOPHEN 325 MG TAB PO PRN ×2 (09:39→21:39)
[2022-03-08] MEDS: hydroCHLOROthiazide 25 MG TAB PO SCH (09:43)
[2022-03-08] MEDS: atenoloL 50 MG TAB PO SCH ×3 (09:43→21:41)
[2022-03-08] MEDS: ARIPiprazole 10 MG TAB PO SCH (10:50)
--- NOTE | 2022-03-08 11:07 | Progress Note ---
Assessment and Plan - Patient Problems (1) Vascular dementia with behavior disturbance Current Visit: Yes Status: Acute Plan to address problem: Verbal prompting, verbal redirection, benzodiazepine therapy as clinically indicated. (2) Cerebral atherosclerosis Current Visit: Yes Status: Acute Plan to address problem: Risk factor reduction, antiplatelet therapy as clinically indicated. (3) Hypertension Current Visit: Yes Status: Acute Qualifiers: Hypertension type: primary hypertension Qualified Code(s): I10 - Essential (primary) hypertension Plan to address problem: Monitor blood pressure every shift, continue medical management. (4) Hypothyroidism Current Visit: Yes Status: Acute Qualifiers: Hypothyroidism type: unspecified Qualified Code(s): E03.9 - Hypothyroidism, unspecified Plan to address problem: Continue current therapy, supportive care. Outpatient follow-up with primary care physician. (5) Hyperlipidemia Current Visit: Yes Status: Acute Qualifiers: Hyperlipidemia type: mixed hyperlipidemia Qualified Code(s): E78.2 - Mixed hyperlipidemia Plan to address problem: Low-cholesterol diet, supportive care. (6) Major depression Current Visit: Yes Status: Acute Qualifiers: Major depression episode severity: unspecified Plan to address problem: Continue medical management, cognitive behavioral therapy as clinically indicated. (7) Generalized anxiety disorder Current Visit: Yes Status: Acute Plan to address problem: Benzodiazepine therapy as clinically indicated, verbal redirection. (8) Advance care planning Current Visit: Yes Status: Acute Plan to address problem: Disease education conducted, care plan discussed, diagnoses discussed, prognosis discussed, patient is full code. Patient acknowledges understanding and agreement with care plan, +30 minutes. (9) Preventative health care Current Visit: Yes Status: Acute Plan to address problem: Patient counseled regarding weight loss, balanced diet, increase physical activity at discharge. +15 minutes. History Interval history: 71 YO Female with Vascular Dementia with Behavioral Disturbance, Cerebral Atherosclerosis, HTN, HLD, Hypothyroidism, Seizure DO, MDD, DISHA. Pt is admitted to [facility] for psychiatric stabilization. Consult placed by Dr. Cm for medical management. Patient seen and evaluated in the recreation room. Patient agitation/confusion improved. Patient remains comfortable. Patient remains at baseline level of cognition and function. Hospitalist Physical - Constitutional Vitals: Temp Pulse Resp BP Pulse Ox 98.9 F 70 18 96/42 95 03/08/22 09:05 03/08/22 09:05 03/08/22 09:39 03/08/22 09:05 03/08/22 09:05 General appearance: Present: no acute distress, obese - EENT Eyes: Present: PERRL ENT: hearing decreased - Neck Neck: Present: supple - Respiratory Respiratory effort: normal Respiratory: bilateral: diminished - Cardiovascular Rhythm: regular Heart Sounds: Present: S1 & S2 - Extremities Extremities: no ischemia Peripheral Pulses: within normal limits - Abdominal General gastrointestinal: soft, non-tender, non-distended - Integumentary Integumentary: Present: clear, dry - Psychiatric Psychiatric: cooperative - Neurologic Neurologic: CNII-XII intact Results - Labs CBC & Chem 7: 03/02/22 07:39 03/02/22 07:39 Labs: Laboratory Last Values WBC 7.9 K/mm3 (4.5-11.0) 03/02/22 07:39 RBC 4.45 M/mm3 (3.65-5.03) 03/02/22 07:39 Hgb 12.6 gm/dl (10.1-14.3) 03/02/22 07:39 Hct 38.2 % (30.3-42.9) 03/02/22 07:39 MCV 86 fl (79-97) 03/02/22 07:39 MCH 28 pg (28-32) 03/02/22 07:39 MCHC 33 % (30-34) 03/02/22 07:39 RDW 14.2 % (13.2-15.2) 03/02/22 07:39 Plt Count 269 K/mm3 (140-440) 03/02/22 07:39 Lymph % (Auto) 20.5 % (13.4-35.0) 03/02/22 07:39 [place] % (Auto) 10.4 % (0.0-7.3) H 03/02/22 07:39 Eos % (Auto) 3.5 % (0.0-4.3) 03/02/22 07:39 Baso % (Auto) 0.3 % (0.0-1.8) 03/02/22 07:39 Lymph # (Auto) 1.6 K/mm3 (1.2-5.4) 03/02/22 07:39 [place] # (Auto) 0.8 K/mm3 (0.0-0.8) 03/02/22 07:39 Eos # (Auto) 0.3 K/mm3 (0.0-0.4) 03/02/22 07:39 Baso # (Auto) 0.0 K/mm3 (0.0-0.1) 03/02/22 07:39 Seg Neutrophils % 65.3 % (40.0-70.0) 03/02/22 07:39 Seg Neutrophils # 5.1 K/mm3 (1.8-7.7) 03/02/22 07:39 Sodium 144 mmol/L (137-145) 03/02/22 07:39 Potassium 3.9 mmol/L (3.6-5.0) 03/02/22 07:39 Chloride 104.1 mmol/L (98-107) 03/02/22 07:39 Carbon Dioxide 26 mmol/L (22-30) 03/02/22 07:39 Anion Gap 18 mmol/L 03/02/22 07:39 BUN 7 mg/dL (7-17) 03/02/22 07:39 Creatinine 0.7 mg/dL (0.6-1.2) 03/02/22 07:39 Estimated GFR > 60 ml/min 03/02/22 07:39 BUN/Creatinine Ratio 10 % 03/02/22 07:39 Glucose 105 mg/dL (65-100) H 03/02/22 07:39 Hemoglobin A1c 6.2 % (4-6) H 03/02/22 07:39 Calcium 9.7 mg/dL (8.4-10.2) 03/02/22 07:39 Total Bilirubin 0.40 mg/dL (0.1-1.2) 03/02/22 07:39 AST 15 units/L (5-40) 03/02/22 07:39 ALT 9 units/L (7-56) 03/02/22 07:39 Alkaline Phosphatase 76 units/L (35-129) 03/02/22 07:39 Total Protein 6.8 g/dL (6.3-8.2) 03/02/22 07:39 Albumin 4.4 g/dL (3.9-5) 03/02/22 07:39 Albumin/Globulin Ratio 1.8 % 03/02/22 07:39 Triglycerides 104 mg/dL (2-149) 03/02/22 07:39 Cholesterol 175 mg/dL (50-199) 03/02/22 07:39 LDL Cholesterol Direct 87 mg/dL (50-130) 03/02/22 07:39 HDL Cholesterol 67 mg/dL (40-59) H 03/02/22 07:39 Cholesterol/HDL Ratio 2.61 % 03/02/22 07:39 TSH 2.380 mlU/mL (0.270-4.200) 03/02/22 07:39 [place]/IV: Voiding Method Toilet Active Medications - Current Medications Current Medications: Generic Name Dose Route Start Last Admin Trade Name Freq PRN Reason Stop Dose Admin Acetaminophen 650 mg 03/03/22 10:30 03/08/22 09:39 Acetaminophen 325 Mg Tab PO 650 mg Q6H PRN Administration Pain, Mild (1-3) Aripiprazole 10 mg 03/08/22 11:00 03/08/22 10:50 Aripiprazole 10 Mg Tab PO Not Given QDAY [facility] Atenolol 50 mg 03/02/22 10:00 03/08/22 09:43 Atenolol 50 Mg Tab PO Not Given BID [facility] Atorvastatin Calcium 20 mg 03/02/22 22:00 03/07/22 21:14 Atorvastatin 20 Mg Tab PO 20 mg QHS [facility] Administration Citalopram Hydrobromide 40 mg 03/02/22 10:00 03/08/22 09:35 Citalopram 20 Mg Tab PO 40 mg QDAY [facility] Administration Ferrous Sulfate 325 mg 03/02/22 10:00 03/08/22 09:34 Ferrous Sulfate 325 Mg Tab PO 325 mg BID [facility] Administration Folic Acid 1 mg 03/02/22 10:00 03/08/22 09:34 Folic Acid 1 Mg Tab PO 1 mg BID [facility] Administration Hydrochlorothiazide 25 mg 03/02/22 10:00 03/08/22 09:43 Hydrochlorothiazide 25 Mg Tab PO Not Given DAILY [facility] Levetiracetam 500 mg 03/02/22 02:00 03/08/22 09:34 Levetiracetam 500 Mg Tab PO 500 mg BID [facility] Administration Levothyroxine Sodium 25 mcg 03/03/22 06:00 03/08/22 05:42 Levothyroxine 25 Mcg Tab PO 25 mcg DAILY@0600 [facility] Administration Levothyroxine Sodium 50 mcg 03/03/22 06:00 03/08/22 05:42 Levothyroxine 50 Mcg Tab PO 50 mcg DAILY@0600 [facility] Administration Melatonin 5 mg 03/02/22 01:25 03/02/22 21:07 Melatonin 5 Mg Tab PO 5 mg QHS PRN Administration Sleep Neomycin/Polymyxin/Bacitracin 1 applic 03/04/22 20:00 03/08/22 09:35 Neomy 3.5 Mg/Bacit 400 Units/Poly B 5000 Units/Gm Oint Packet TP 1 applic TID [facility] Administration Trazodone HCl 50 mg 03/02/22 22:00 03/07/22 21:16 Trazodone 50 Mg Tab PO Not Given QHS [facility] Ziprasidone 20 mg 03/02/22 10:00 Ziprasidone Mesylate 20 Mg Vial IM Q4H PRN Agitation
[2022-03-08] MEDS: traZODone 50 MG TAB PO SCH ×2 (21:32→21:42)
[2022-03-09] MEDS: LEVOTHYROXINE 25 MCG TAB PO SCH (06:36)
[2022-03-09] MEDS: LEVOTHYROXINE 50 MCG TAB PO SCH (06:36)
[2022-03-09] MEDS: CITALOPRAM 20 MG TAB PO SCH (09:07)
[2022-03-09] MEDS: levETIRAcetam 500 MG TAB PO SCH ×2 (09:07→22:07)
[2022-03-09] MEDS: FERROUS SULFATE 325 MG TAB PO SCH ×2 (09:07→22:07)
[2022-03-09] MEDS: NEOMY 3.5 MG/BACIT 400 UNITS/POLY B 5000 UNITS/GM OINT PACKET TP SCH ×3 (09:07→22:05)
[2022-03-09] MEDS: FOLIC ACID 1 MG TAB PO SCH ×2 (09:07→22:07)
[2022-03-09] MEDS: ACETAMINOPHEN 325 MG TAB PO PRN (09:10)
[2022-03-09] MEDS: atenoloL 50 MG TAB PO SCH ×2 (09:12→22:09)
[2022-03-09] MEDS: hydroCHLOROthiazide 25 MG TAB PO SCH (09:12)
[2022-03-09] MEDS: ARIPiprazole 10 MG TAB PO SCH (09:13)
--- NOTE | 2022-03-09 09:35 | Progress Note ---
Subjective Date of service: 03/09/22 Principal diagnosis: MDD w/psychotic features Subjective Comment: The patient was seen today. She is calm and cooperative. She says she has an appointment coming up with one of her doctors. She is asking for her phone to get her sister's and son's number out of it. I informed staff of this request. The patient denies SI/HI. She says "I don't like stepping on ants, let alone hurt myself or another human being." The patient also denies hallucinations of any kind. 03/09 The patient was seen today. She becomes upset when I told her she's might be discharging with her daughter. The patient says "If I go anywhere with her we will wreck." She says she was living at her apartment alone and doing just fine. The patient denies SI/HI or hallucinations of any kind. She says the daughter is only after her money. The patient is requesting SLUMS test performed on the patient. She scored a 26 which places her with mild nerocognitive disorder. She says she suffers from short term memory loss due to [place] disease years ago. I spoke with the daughter, Yaima again. She says her and her brother contest the patient being discharge because she has nowhere to go. She says no one has power of workers compensation attorney for this patient and the patient will not be coming back to her house. She says she informed the SW they were looking for a memory care or somewhere for the patient. Spoke with Dr. walsh, and he initially says keep the patient for another 24 hours. He then says refer to to work things out with family. 03/08 The patient was seen today. She is delusional and refers to herself as Dr. Carlos. She says she is dehydrated. She also says she has "long COVID and seizures." She say "if you all don't know what long COVID is yall need to look it up." The patient says she has seizures on one part of her brain and covid on the other side. She denies SI/HI or hallucinations of any kind. The patient states her daughter took over things illegally. Will increase the Abilify 10mg po daily. 03/07 Spoke with the daughter about the patient's progress. She says they have been looking for the patient a place to go. She says they are looking at memory care and other facilities but, states she has not put anything into place. She says she was told her mother would be discharging Tuesday, and states there is nowhere for her mother to go because she has no where to place her. 03/06 The patient was seen today. She is much more quiet today. The patient says she's doing okay, but "better if she was at home." She says she slept well. She denies SI/HI or hallucinations of any kind. 03/05 The patient was seen today. She appears delusional. She is sitting in the dayroom, and tells me to turn off the light because her will cause her to have a seizure. She has her eyes partially covered with her face mask. She says she had a great night sleep. The patient denies SI/HI. She says "no I am a Shinto woman and I don't believe in hurting anybody in this world." She says "life is life." The patient says she slept great last night. She denies hallucinations. The patient says "reality is bad enough." She then laughs. 03/04:The patient was seen this morning. she continues to be somatically focuses, and tangential. She states her mood is good. She denies any current suicidal/homicidal ideation and denies hallucinations. Start Abilify 5mg po Daily. 03/03:The patient was seen this morning. she continues to be somatically focuses, circumstantial and flight of ideas. She states her mood is good. she denies any current suicidal/homicidal ideation and denies hallucinations. REVIEW OF SYSTEMS Constitutional: Negative for weight loss ENT: Negative for stridor Respiratory: Negative for cough or hemoptysis All other systems reviewed and are negative MENTAL STATUS EXAMINATION General Appearance and Behavior: Age appropriate, good hygiene, wearing appropriate clothes, fair eye contact, calm, cooperative and polite Cooperation: Cooperative Psychomotor Behavior: Psychomotor normal Mood: fine Affect and affective range: congruent with stated mood Thought Process: circumstantial. Thought Content: None Speech: normal tone and pace Suicidal Ideation: Denies Homicidal Ideation: Denies Hallucinations: Denies Delusions: None elicited Impulse Control: Limited Insight and Judgment: Limited insight and judgment Memory: Limited Attention: attentive Orientation: Alert, oriented Assessment and Plan Major depressive disorder with psychotic features Treatment Plan Patient admitted for inpatient psychiatric evaluation, medication adjustment and close monitoring The patient's behavior, mood, sleep and appetite will be closely monitored. Patient enrolled in individual and group therapeutic sessions and encouraged to attend. Patient provided with a safe and structured environment. Patient's physical health needs will be addressed by the Hospitalist. Hospitalist Consulted Labs including CBC, CMP, Lipid profile and Hemoglobin A1C levels ordered for baseline reference Social Assessment will be completed and the Taper Machine will work with patient and family to ensure a suitable and safe disposition Medication adjustment will be made as clinically indicated No changes made today Usual Wellness Pentecostalism/Preservation: - Start Trazodone 50 mg po QHS & 50 mg po QHS PRN between 10 PM & 2 AM for insomnia - Start Melatonin 5 mg po QHS to promote circadian rhythm The patient agreed on the treatment plan, understood the risk, benefit, alternative treatment, potential consequence of no treatment, and gave informed consent. Estimated days: 6 Post hospital care: primary care provider, psychiatric provider Case staffed with Dr. Walsh Medications and Allergies Allergies Allergy/AdvReac Type Severity Reaction Status Date / Time aspirin Allergy Unknown Unverified 03/01/22 16:48 ceftriaxone Allergy Unknown Unverified 03/01/22 16:45 ginkgo biloba Allergy Unknown Unverified 03/01/22 16:48 oxycodone Allergy Unknown Unverified 03/01/22 16:45 Home Medications Medication Instructions Recorded Confirmed Last Taken Type Atenolol 50 mg PO BID 03/01/22 03/01/22 02/26/22 History Celexa 40 mg PO DAILY 03/01/22 03/01/22 02/26/22 History Crestor 5 mg PO DAILY 03/01/22 03/01/22 02/26/22 History Ferrous Sulfate 325 mg PO BID 03/01/22 03/01/22 02/26/22 History Folic Acid 1 mg PO BID 03/01/22 03/01/22 02/26/22 History Levothyroxine 25 mcg PO DAILY 03/01/22 03/01/22 02/26/22 History Levothyroxine 50 mcg PO DAILY 03/01/22 03/01/22 02/26/22 History Melatonin 5 mg SUBLINGUAL HS 0503/01/22 02/26/22 History Ondansetron 4 mg PO BID 03/01/22 03/01/22 02/26/22 History hydroCHLOROthiazide [HCTZ] 25 mg PO DAILY 03/01/22 03/01/22 02/26/22 History levETIRAcetam [Keppra TAB] 500 mg PO BID 03/01/22 03/01/22 02/26/22 History propranoloL 20 mg PO BID 03/01/22 03/01/22 Unknown History Active Meds: Active Medications Acetaminophen (Acetaminophen 325 Mg Tab) 650 mg PO Q6H PRN PRN Reason: Pain, Mild (1-3) Last Admin: 03/09/22 09:10 Dose: 650 mg Aripiprazole (Aripiprazole 10 Mg Tab) 10 mg PO QDAY [facility] Last Admin: 03/09/22 09:13 Dose: Not Given Atenolol (Atenolol 50 Mg Tab) 50 mg PO BID [facility] Last Admin: 03/09/22 09:12 Dose: Not Given Atorvastatin Calcium (Atorvastatin 20 Mg Tab) 20 mg PO QHS [facility] Last Admin: 03/08/22 21:43 Dose: Not Given Citalopram Hydrobromide (Citalopram 20 Mg Tab) 40 mg PO QDAY [facility] Last Admin: 03/09/22 09:07 Dose: 40 mg Ferrous Sulfate (Ferrous Sulfate 325 Mg Tab) 325 mg PO BID [facility] Last Admin: 03/09/22 09:07 Dose: 325 mg Folic Acid (Folic Acid 1 Mg Tab) 1 mg PO BID [facility] Last Admin: 03/09/22 09:07 Dose: 1 mg Hydrochlorothiazide (Hydrochlorothiazide 25 Mg Tab) 25 mg PO DAILY [facility] Last Admin: 03/09/22 09:12 Dose: Not Given Levetiracetam (Levetiracetam 500 Mg Tab) 500 mg PO BID [facility] Last Admin: 03/09/22 09:07 Dose: 500 mg Levothyroxine Sodium (Levothyroxine 25 Mcg Tab) 25 mcg PO DAILY@0600 [facility] Last Admin: 03/09/22 06:36 Dose: 25 mcg Levothyroxine Sodium (Levothyroxine 50 Mcg Tab) 50 mcg PO DAILY@0600 [facility] Last Admin: 03/09/22 06:36 Dose: 50 mcg Melatonin (Melatonin 5 Mg Tab) 5 mg PO QHS PRN PRN Reason: Sleep Last Admin: 03/02/22 21:07 Dose: 5 mg Neomycin/Polymyxin/Bacitracin (Neomy 3.5 Mg/Bacit 400 Units/Poly B 5000 Units/Gm Oint Packet) 1 applic TP TID [facility] Last Admin: 03/09/22 09:07 Dose: 1 applic Trazodone HCl (Trazodone 50 Mg Tab) 50 mg PO QHS [facility] Last Admin: 03/08/22 21:42 Dose: Not Given Ziprasidone (Ziprasidone Mesylate 20 Mg Vial) 20 mg IM Q4H PRN PRN Reason: Agitation Results - Results Labs/Vitals: Laboratory Last Values WBC 7.9 K/mm3 (4.5-11.0) 03/02/22 07:39 RBC 4.45 M/mm3 (3.65-5.03) 03/02/22 07:39 Hgb 12.6 gm/dl (10.1-14.3) 03/02/22 07:39 Hct 38.2 % (30.3-42.9) 03/02/22 07:39 MCV 86 fl (79-97) 03/02/22 07:39 MCH 28 pg (28-32) 03/02/22 07:39 MCHC 33 % (30-34) 03/02/22 07:39 RDW 14.2 % (13.2-15.2) 03/02/22 07:39 Plt Count 269 K/mm3 (140-440) 03/02/22 07:39 Lymph % (Auto) 20.5 % (13.4-35.0) 03/02/22 07:39 [place] % (Auto) 10.4 % (0.0-7.3) H 03/02/22 07:39 Eos % (Auto) 3.5 % (0.0-4.3) 03/02/22 07:39 Baso % (Auto) 0.3 % (0.0-1.8) 03/02/22 07:39 Lymph # (Auto) 1.6 K/mm3 (1.2-5.4) 03/02/22 07:39 [place] # (Auto) 0.8 K/mm3 (0.0-0.8) 03/02/22 07:39 Eos # (Auto) 0.3 K/mm3 (0.0-0.4) 03/02/22 07:39 Baso # (Auto) 0.0 K/mm3 (0.0-0.1) 03/02/22 07:39 Seg Neutrophils % 65.3 % (40.0-70.0) 03/02/22 07:39 Seg Neutrophils # 5.1 K/mm3 (1.8-7.7) 03/02/22 07:39 Sodium 144 mmol/L (137-145) 03/02/22 07:39 Potassium 3.9 mmol/L (3.6-5.0) 03/02/22 07:39 Chloride 104.1 mmol/L (98-107) 03/02/22 07:39 Carbon Dioxide 26 mmol/L (22-30) 03/02/22 07:39 Anion Gap 18 mmol/L 03/02/22 07:39 BUN 7 mg/dL (7-17) 03/02/22 07:39 Creatinine 0.7 mg/dL (0.6-1.2) 03/02/22 07:39 Estimated GFR > 60 ml/min 03/02/22 07:39 BUN/Creatinine Ratio 10 % 03/02/22 07:39 Glucose 105 mg/dL (65-100) H 03/02/22 07:39 Hemoglobin A1c 6.2 % (4-6) H 03/02/22 07:39 Calcium 9.7 mg/dL (8.4-10.2) 03/02/22 07:39 Total Bilirubin 0.40 mg/dL (0.1-1.2) 03/02/22 07:39 AST 15 units/L (5-40) 03/02/22 07:39 ALT 9 units/L (7-56) 03/02/22 07:39 Alkaline Phosphatase 76 units/L (35-129) 03/02/22 07:39 Total Protein 6.8 g/dL (6.3-8.2) 03/02/22 07:39 Albumin 4.4 g/dL (3.9-5) 03/02/22 07:39 Albumin/Globulin Ratio 1.8 % 03/02/22 07:39 Triglycerides 104 mg/dL (2-149) 03/02/22 07:39 Cholesterol 175 mg/dL (50-199) 03/02/22 07:39 LDL Cholesterol Direct 87 mg/dL (50-130) 03/02/22 07:39 HDL Cholesterol 67 mg/dL (40-59) H 03/02/22 07:39 Cholesterol/HDL Ratio 2.61 % 03/02/22 07:39 TSH 2.380 mlU/mL (0.270-4.200) 03/02/22 07:39 Last Vital Signs Temp 98.0 F 03/09/22 07:45 Pulse 60 03/09/22 09:12 Resp 16 03/09/22 09:10 BP 124/55 03/09/22 09:12 Pulse Ox 95 03/09/22 07:45
[2022-03-09] MEDS: traZODone 50 MG TAB PO SCH (22:09)
[2022-03-10 00:10] VITALS: BP 133/54
[2022-03-10] MEDS: LEVOTHYROXINE 50 MCG TAB PO SCH (06:56)
[2022-03-10] MEDS: LEVOTHYROXINE 25 MCG TAB PO SCH (06:56)
--- NOTE | 2022-03-10 08:45 | Discharge Summary ---
Providers - Providers Date of Admission: 03/02/22 01:13 Date of discharge: 03/10/22 Attending physician: KE WOOD MD 03/01/22 23:41 Consult to Physician [CONS] Routine Comment: Consulting Provider: YARED PITTMAN Physician Instructions: Reason For Exam: management of medical problem Primary care physician: TEMPORARY DATA ENTRY CLERK Hospitalization Reason for admission: delusions Admitting Diagnosis: F33.9 - MAJOR DEPRESSIVE DISORDER, RECURRENT, UNSPECIFIED Condition: Stable Hospital course: The patient was provided inpatient psychiatric treatment with safe and supportive environment, group/individual therapy, psychiatric medication, medication adjustment, adverse effect monitor, medical evaluation, medical treatment, social service assessment, social support meeting, placement assessment and psycho-education. The patients mood, cognition, behavior, motivation, compliance to treatment and appreciation on family/social support are improved and stabilized. At the time of discharge, the patient had no suicidal ideas, no homicidal ideas, no aggressive thoughts, no endangering behavior and no debilitating adverse effects. The patient agreed on the treatment plan, understood the risk, benefit, alternative treatment, potential consequence of no treatment, and gave informed consent. 03/10 The patient was seen today. She is a/o x 3. She is calm and cooperative. She is pleasant. She was elated to hear that she'd be going home today. The patient says "I feel wonderful." She denies SI/HI or hallucinations of any kind. 03/09 The patient was seen today. She is calm and cooperative. She says she has an appointment coming up with one of her doctors. She is asking for her phone to get her sister's and son's number out of it. I informed staff of this request. The patient denies SI/HI. She says "I don't like stepping on ants, let alone hurt myself or another human being." The patient also denies hallucinations of any kind. 03/08 The patient was seen today. She becomes upset when I told her she's might be discharging with her daughter. The patient says "If I go anywhere with her we will wreck." She says she was living at her apartment alone and doing just fine. The patient denies SI/HI or hallucinations of any kind. She says the daughter is only after her money. The patient is requesting SLUMS test performed on the patient. She scored a 26 which places her with mild nerocognitive disord er. She says she suffers from short term memory loss due to [place] disease years ago. I spoke with the daughter, Yaima again. She says her and her brother contest the patient being discharge because she has nowhere to go. She says no one has power of finance attorney for this patient and the patient will not be coming back to her house. She says she informed the SW they were looking for a memory care or [place] ewhere for the patient. Spoke with Dr. martinez, and he initially says keep the patient for another 24 hours. He then says refer to SW to work things out with family. 03/07 The patient was seen today. She is delusional and refers to herself as Dr. Carlos. She says she is dehydrated. She also says she has "long COVID and seizures." She say "if you all don't know what long COVID is yall need to look it up." The patient says she has seizures on one part of her brain and covid on the other side. She denies SI/HI or hallucinations of any kind. The patient states her daughter took over things illegally. Will increase the Abilify 10mg po daily. Spoke with the daughter about the patient's progress. She says they have been looking for the patient a place to go. She says they are looking at memory care and other facilities but, states she has not put anything into place. She says she was told her mother would be discharging Tuesday, and states there is nowhere for her mother to go because she has no where to place her. 03/06 The patient was seen today. She is much more quiet today. The patient says she's doing okay, but "better if she was at home." She says she slept well. She denies SI/HI or hallucinations of any kind. 03/05 The patient was seen today. She appears delusional. She is sitting in the dayroom, and tells me to turn off the light because her will cause her to have a seizure. She has her eyes partially covered with her face mask. She says she had a great night sleep. The patient denies SI/HI. She says "no I am a Roman Catholic woman and I don't believe in hurting anybody in this world." She says "life is life." The patient says she slept great last night. She denies hallucinations. The patient says "reality is bad enough." She then laughs. 03/04:The patient was seen this morning. she continues to be somatically focuses, and tangential. She states her mood is good. She denies any current suicidal/homicidal ideation and denies hallucinations. Start Abilify 5mg po Daily. 03/03:The patient was seen this morning. she continues to be somatically focuses, circumstantial and flight of ideas. She states her mood is good. she denies any current suicidal/homicidal ideation and denies hallucinations. Disposition: 01 HOME / SELF CARE / HOMELESS Time spent for discharge: 35 Allergies/Adverse Reactions: Allergies aspirin Allergy (Unverified 03/01/22 16:48) Unknown ceftriaxone Allergy (Unverified 03/01/22 16:45) Unknown ginkgo biloba Allergy (Unverified 03/01/22 16:48) Unknown oxycodone Allergy (Unverified 03/01/22 16:45) Unknown Vital Signs: Last Vital Signs Temp 98.2 F 03/09/22 20:00 Pulse 54 L 03/09/22 22:09 Resp 18 03/09/22 20:00 BP 133/52 03/09/22 22:09 Pulse Ox 96 03/09/22 20:00 Last Lab: Laboratory Last Values WBC 7.9 K/mm3 (4.5-11.0) 03/02/22 07:39 RBC 4.45 M/mm3 (3.65-5.03) 03/02/22 07:39 Hgb 12.6 gm/dl (10.1-14.3) 03/02/22 07:39 Hct 38.2 % (30.3-42.9) 03/02/22 07:39 MCV 86 fl (79-97) 03/02/22 07:39 MCH 28 pg (28-32) 03/02/22 07:39 MCHC 33 % (30-34) 03/02/22 07:39 RDW 14.2 % (13.2-15.2) 03/02/22 07:39 Plt Count 269 K/mm3 (140-440) 03/02/22 07:39 Lymph % (Auto) 20.5 % (13.4-35.0) 03/02/22 07:39 [place] % (Auto) 10.4 % (0.0-7.3) H 03/02/22 07:39 Eos % (Auto) 3.5 % (0.0-4.3) 03/02/22 07:39 Baso % (Auto) 0.3 % (0.0-1.8) 03/02/22 07:39 Lymph # (Auto) 1.6 K/mm3 (1.2-5.4) 03/02/22 07:39 [place] # (Auto) 0.8 K/mm3 (0.0-0.8) 03/02/22 07:39 Eos # (Auto) 0.3 K/mm3 (0.0-0.4) 03/02/22 07:39 Baso # (Auto) 0.0 K/mm3 (0.0-0.1) 03/02/22 07:39 Seg Neutrophils % 65.3 % (40.0-70.0) 03/02/22 07:39 Seg Neutrophils # 5.1 K/mm3 (1.8-7.7) 03/02/22 07:39 Sodium 144 mmol/L (137-145) 03/02/22 07:39 Potassium 3.9 mmol/L (3.6-5.0) 03/02/22 07:39 Chloride 104.1 mmol/L (98-107) 03/02/22 07:39 Carbon Dioxide 26 mmol/L (22-30) 03/02/22 07:39 Anion Gap 18 mmol/L 03/02/22 07:39 BUN 7 mg/dL (7-17) 03/02/22 07:39 Creatinine 0.7 mg/dL (0.6-1.2) 03/02/22 07:39 Estimated GFR > 60 ml/min 03/02/22 07:39 BUN/Creatinine Ratio 10 % 03/02/22 07:39 Glucose 105 mg/dL (65-100) H 03/02/22 07:39 Hemoglobin A1c 6.2 % (4-6) H 03/02/22 07:39 Calcium 9.7 mg/dL (8.4-10.2) 03/02/22 07:39 Total Bilirubin 0.40 mg/dL (0.1-1.2) 03/02/22 07:39 AST 15 units/L (5-40) 03/02/22 07:39 ALT 9 units/L (7-56) 03/02/22 07:39 Alkaline Phosphatase 76 units/L (35-129) 03/02/22 07:39 Total Protein 6.8 g/dL (6.3-8.2) 03/02/22 07:39 Albumin 4.4 g/dL (3.9-5) 03/02/22 07:39 Albumin/Globulin Ratio 1.8 % 03/02/22 07:39 Triglycerides 104 mg/dL (2-149) 03/02/22 07:39 Cholesterol 175 mg/dL (50-199) 03/02/22 07:39 LDL Cholesterol Direct 87 mg/dL (50-130) 03/02/22 07:39 HDL Cholesterol 67 mg/dL (40-59) H 03/02/22 07:39 Cholesterol/HDL Ratio 2.61 % 03/02/22 07:39 TSH 2.380 mlU/mL (0.270-4.200) 03/02/22 07:39 Core Measure Documentation - Palliative Care Palliative Care/ Comfort Measures: Not Applicable - Core Measures Any of the following diagnoses?: none Exam - Constitutional Vitals: Temp Pulse Resp BP Pulse Ox 98.2 F 54 L 18 133/52 96 03/09/22 20:00 03/09/22 22:09 03/09/22 20:00 03/09/22 22:09 03/09/22 20:00 General appearance: Present: no acute distress - EENT Eyes: Present: EOM intact ENT: hearing intact, clear oral mucosa - Neck Neck: Present: normal ROM - Respiratory Respiratory effort: normal Plan Activity: advance as tolerated Weight Bearing Status: Weight Bear as Tolerated Care Plan Goals: Maintain good and stable mental health Plan of Treatment: The patient should be compliant with medications, not to use drugs and not to drink alcohol.The patient understands that if suicidal ideas, homicidal ideas, or any endangering thoughts/behavior arise, they should immediately seek for emergent assistance including but not limited to crisis hot line and emergency room. Follow up with outpatient Psychiatrist and PCP within 7 - 14 days of discharge. Assessment: MDD Mild Neurocognitive Disorder Follow up with: PRIMARY CARE,MD [Primary Care Provider] - 7 Days Prescriptions: traZODone [Desyrel] 50 mg PO QHS #30 tablet Melatonin [Melatonin 5MG TAB] 5 mg PO QHS PRN #30 tablet PRN Reason: Sleep ARIPiprazole [Abilify TAB] 10 mg PO QDAY #30 tablet Celexa 40 mg PO DAILY #30
== END 2022-03-10 08:55 | disposition home or self-care (01) | DRG 885 ==
LOC: 3A 16:38 → UNDOADMIN 16:38 → 5A 03-02 01:13
PROVIDERS: ADMIT Psychiatry & Neurology Psychiatry; ATTEND Psychiatry & Neurology Psychiatry
DX: F32.3 Major depressive disorder, single episode, severe with psychotic features (principal); F23 Brief psychotic disorder; F01.51 Vascular dementia, unspecified severity, with behavioral disturbance; R45.851 Suicidal ideations; F41.9 Anxiety disorder, unspecified; I10 Essential (primary) hypertension; E78.5 Hyperlipidemia, unspecified; E03.9 Hypothyroidism, unspecified; Z88.6 Allergy status to analgesic agent; Z88.8 Allergy status to other drugs, medicaments and biological substances; Z90.710 Acquired absence of both cervix and uterus; Z79.899 Other long term (current) drug therapy
CPT/HCPCS: 36415; 80053; 80061; 83036; 84443; 85025; G0378; J3490; Q0162